=== PATIENT | male | born 1940 | race Caucasian/White ===

== ENCOUNTER 2018-04-14 14:38 | Emergency (ER) | payer MEDICARE ==
--- OUTSIDE RECORDS SUMMARY | 2018-04-14 14:46 | XMS REPORT ---
:1940 External Reference #:[id number] Author Organization Formerly [facility] Address [address] [place] [address] Phone [phone] Care Team Providers Name Role Phone Miguel Angel Sauceda M.D. Care Team Information Assistant Softball Coach Unavailable Miguel Angel Sauceda M.D. Primary Care Physician Unavailable Payers Type Date Identification Numbers Payment Provider Subscriber Medicare Primary Effective: Policy Number: Medicare - Bswny Arun Watters 2005 [id number] [facility] Haroldo ESTRELLAMichael PayID: [id number] [address] [place] [address] Part B Policy Number: [facility] Arun Haynes JR. [id number] Options [address] [place] [address] Problems Date Description Provider Status Onset: 01/21/2012 Essential hypertension Miguel Angel Sauceda M.D. Active Onset: 01/21/2012 Pure hypercholesterolemia Miguel Angel Sauceda M.D. Active Onset: 01/21/2012 Pernicious anemia GRUPO Barnard Active Family History Date Family Member(s) Problem(s) Comments Father due to CHF () (Congestive Failure) Father Stroke Father Phlebitis Father due to () Complications Of Surgery For Valvular HD Father due to DVT () - with pulm emboli, occured after choley and being bed ridden Mother due to Dementia () Mother Hypertension Mother Ministrokes And Dementia Children 1 First Son Depression Siblings 3 First Brother Arthritis First Brother Glaucoma First Sister Trigeminal Neuralgia First Sister due to COPD () First Sister Depression Second Sister Non Contributory Paternal Grandfather Unknown : (age Paternal Grandmother due to Unknown 87 Years) Causes Maternal Grandmother "Vascular Problems" Social History Type Date Description Comments Marital Status Lives With Spouse 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 Recreational Drug Use Never Used Drugs Daily Caffeine Consumes on average 5 cups of coffee per day Exercise Type/Frequency Does not exercise currently Allergies, Adverse Reactions, Alerts Date Description Reaction Status Severity Comments 07/01/2008 NKDA active Medications Medication Date Status Form Strength Qnty SIG Indications Ordering Provider Venlafaxine HCL ER 03/26 Active Caps ER 75mg 60cap 2 capsules F41.9 24HR s by mouth harman Sauceda M.DMichael Propranolol HCL 03/26 Active Tablets 10mg 30tab 1-2 by F41.9 s mouth three Sauceda, times a day M.D. as needed for anxiety Vitamin D 05/06 Active Capsules [id number] 12cap 1 by mouth E55.9 Miguel Angel (Ergocalciferol) s weekly x 12 Sauceda, saul M.DMichael Lisinopril 07/31 Active Tablets 10mg 90tab take 1 I10 s tablet by Sohail, mouth once M.D. daily Hydrochlorothiazid 12/30 Active Tablets 25mg 90tab take 1 I10 s tablet by Sauceda, mouth once M.D. daily Vitamin B12 12/26 Active Tablets 1,000mcg 90tab 1 po qd s Lesvia Sauceda Aspirin 12/22 Active Ec Tab 81mg 30uni 1 po qd I10 ts Lesvia Sauceda Venlafaxine HCL ER 03/12 Hx Caps ER 37.5mg 30cap take 1 F41.9 24HR s capsule by Sohail - mouth once M.D. 03/26 daily x weeks, then 2 po qam Hearing Evaluation 04/17 Hx Miguel Angel Hema Sauceda.Dalila 08/28 Triamcinolone 10/05 Hx Cream 0.5% 30gm apply to R23.8 affected Sauceda, - area twice M.D. 03/12 a day /2017 Atorvastatin 07/20 Hx Tablets 10mg 90tab 1 by mouth E78.0 s every day Hema Sauceda M.DMichael 02/01 Doxycycline 06/10 Hx Tablets 100mg 2tabs take 2 tab Miguel Angel Hyclate by mouth x Sohail - 1 now. M.D. 09/08 Atenolol 10/29 Hx Tablets 25mg 90tab 1 po qd s Hema SaucedaDMichael 09/19 Lisinopril 04/30 Hx Tablets 20mg 90tab 1 po qd 401.9 Shawnt s Mary Zacarias, - TREASURY MANAGER-C 07/31 Ambulatory Blood 04/30 Hx 1unit Miguel Angel Pressure Monitor s Hema SaucedaDMichael 10/28 Ergocalciferol 02/24 Hx Capsules [id number] 12cap 1 tab by 268.9 s mouth every Sohail, - week x 12 M.D. Hearing Evaluation 11/04 Hx Hema Sauceda M.D. 12/04 Azithromycin 10/05 Hx Tablets 250mg 6tabs 2 po qd day 1, then 1 Sohail, - po qd days M.D. 01/03 2- Valacyclovir HCL 07/10 Hx Tablets 1gm 21tab Take 1 053.29 s tablet tid Lambert, - for 7 days TREASURY MANAGER-C 04/26 Lisinopril 04/18 Hx Tablets 30mg 90tab take 1 401.9 s tablet once Sohail, - daily M.D. 04/30 Ergocalciferol 06/13 Hx Tablets 50,000Uni 12tab 1 po qweek ts s x 12 weeks Hema Sauceda.DMichael 02/24 Azithromycin 06/08 Hx Tablets 250mg 6tabs take 2 tabs 461.9 day 1, take Santana, - 1 day 2-5 PSYCHOLOGICAL ASSISTANT 09/27 Bleph-10 06/08 Hx Solution 10% 1bott 2 drops to 461.9 le affected Dillon, - eye every 3 PSYCHOLOGICAL ASSISTANT initially then 2 times a day for 7 days Physical Therapy 10/08 Hx ROM and 733.12 strength Sohail, - s/p distal M.DMichael 01/06 radial fx. /2009 from Late April Econazole Nitrate 10/08 Hx Cream 1% 85gm use qd to bid x 4 Sohail - weeks for M.D. 09/27 athlete's foot Physical Therapy 06/09 Hx evaluate and treat Sohail - lower back M.D. 09/07 pain Qualaquin 04/01 Hx Capsules 324mg 56cap 2 po q8hr x 729.82 s 7 days Hema Sauceda M.D. 02/04 Astelin 12/30 Hx Solution 137mcg/Sp 30ml Inhale 2 472.0 ray Sprays In Sohail, - Each M.DMichael 04/26 Nostril Times A Day Zestril 09/04 Hx Tablets 30mg 90tab 1 po qd 401.9 Hema Nuñez M.D. 04/18 Hydrochlorothiazid 06/26 Hx Capsules 12.5mg 90cap 1 po qd Hema Nuñez M.D. 12/30 Spectazole 10/27 Hx Cream 1% 60gm use bid Hema Solano M.D. 12/22 Effexor XR 12/08 Hx Capsules 150mg 30cap one qd Hema Jewell M.D. 10/27 Celexa 07/18 Hx Tablets 20mg 30tab use 07/31 to s 1 tab a day Hema Solano M.D. 10/27 Wellbutrin SR 06/02 Hx Tablets 150mg 30tab One qd Nancy Hema Jewell M.D. 10/06 Vitamin B12 04/29 Hx Liquid 1000mcg/M 30ml use as 266.9 Nancy L Hema Woods M.D. 01/29 Syringes 3cc 25G 04/29 Hx 12uni use monthly Nancy 1In [place] Hema Miramontes M.D. 02/03 Effexor XR 04/29 Hx Capsules 75mg 30cap one qd Nancy s Hema Solano MOllie 10/27 Physical Therapy 03/05 Hx 6unit PT for low s back pain Hema Solano with M.DMichael 12/22 radiculopa hy Zestril 01/09 Hx Tablets 20mg 90tab one qd 401.9 Hema Nuñez M.D. 09/04 Metoprolol Hx Tablets 25mg Unknown Succinate ER /0000 ER 24HR - 10/28 Immunizations CPT Code Status Date Vaccine Lot # [id number] Given 05/21/2017 Influenza Vaccine High Dose PF [id number] 65663 Given 05/10/2016 Influenza Vaccine High Dose PF [id number] 65060 Given 05/06/2015 Prevnar-13 Pneumococcal Conjugate Vaccine [id number] 22696 Given 04/27/2015 Influenza Vaccine High Dose PF [id number] 91868 Given 04/30/2014 Influenza Vaccine High Dose PF [id number] 63923 Given 08/14/2013 [place] [address] Given 02/05/2013 Zoster Vaccine [id number] 31708 Given 02/05/2013 Tdap (Adacel) [id number] 05622 Given 04/30/2012 Influenza Vaccine High Dose PF [id number] 98733 Given 04/13/2010 Influenza Vaccine-Preservative Free 3 Yrs And [id number] Above 97613 Given 04/01/2009 Influenza Vaccine-Preservative Free 3 Yrs And [id number] Above 18946 Given 07/01/2008 Pneumovax 23 (PPSV23) 65+ years or high risk 2 to [id number] 64 year old 92389 Given 07/01/2008 Influenza Virus Vaccine, 3 Yrs And Above [id number] 86532 Given 12/22/2005 DT (Adult) [id number] 59291 Given 08/24/2004 Influenza Virus Vaccine, 3 Yrs And Above 40323 Given 07/01/2003 Influenza Virus Vaccine, 3 Yrs And Above 84505 Given 06/02/2002 Influenza Virus Vaccine, 3 Yrs And Above Vital Signs Date Vital Result Comment 03/26/2018 Weight 256.00 lb Weight in kg's 116.122 BP Systolic 120 mmHg BP Diastolic 68 mmHg Heart Rate 88 /min Body Temperature 97.6 F Respiratory Rate 18 /min O2 % BldC Oximetry 94 % Ra 03/12/2018 Weight 260.00 lb Weight in kg's 117.936 BP Systolic 110 mmHg BP Diastolic 60 mmHg Heart Rate 88 /min Body Temperature 99.3 F Respiratory Rate 20 /min 08/29/2017 Weight 261.00 lb Weight in kg's 118.390 BP Systolic 118 mmHg BP Diastolic 70 mmHg Heart Rate 84 /min Body Temperature 97.0 F Respiratory Rate 24 /min 05/21/2017 Weight 254.00 lb Weight in kg's 115.214 BP Systolic 110 mmHg BP Diastolic 78 mmHg Heart Rate 64 /min Body Temperature 98.3 F 11/08/2016 Weight 248.00 lb Weight in kg's 112.493 BP Systolic 110 mmHg BP Diastolic 60 mmHg Heart Rate 68 /min Body Temperature 96.7 F 10/05/2016 Weight 253.00 lb Weight in kg's 114.761 BP Systolic 138 mmHg BP Diastolic 88 mmHg Heart Rate 68 /min Body Temperature 97.8 F Respiratory Rate 18 /min O2 % BldC Oximetry 98 % 08/29/2016 Weight 242.00 lb Weight in kg's 109.771 BP Systolic 120 mmHg BP Diastolic 78 mmHg Heart Rate 60 /min Body Temperature 97.6 F Respiratory Rate 12 /min 05/10/2016 Weight 246.00 lb Weight in kg's 111.586 BP Systolic 118 mmHg BP Diastolic 60 mmHg Heart Rate 60 /min Height 67 inches 5'7" BMI (Body Mass Index) 38.5 kg/m2 O2 % BldC Oximetry 98 % 04/01/2016 Weight 248.00 lb Weight in kg's 112.493 BP Systolic 120 mmHg BP Diastolic 78 mmHg Heart Rate 56 /min Body Temperature 97.3 F Respiratory Rate 16 /min 02/17/2016 Weight 242.00 lb Weight in kg's 109.771 BP Systolic 108 mmHg BP Diastolic 68 mmHg Heart Rate 72 /min Body Temperature 98.3 F Respiratory Rate 20 /min 02/02/2016 Weight 245.00 lb Weight in kg's 111.132 BP Systolic 112 mmHg BP Diastolic 74 mmHg Heart Rate 74 /min Body Temperature 97.6 F 01/29/2016 Weight 241.00 lb Weight in kg's 109.318 BP Systolic 106 mmHg BP Diastolic 60 mmHg Heart Rate 64 /min Body Temperature 99.0 F O2 % BldC Oximetry 96 % 10/13/2015 Weight 239.00 lb Weight in kg's 108.410 BP Systolic 108 mmHg BP Diastolic 62 mmHg Heart Rate 58 /min 09/29/2015 Weight 237.00 lb Weight in kg's 107.503 BP Systolic 120 mmHg BP Diastolic 67 mmHg Heart Rate 56 /min O2 % BldC Oximetry 95 % 08/10/2015 Weight 242.00 lb Weight in kg's 109.771 BP Systolic 120 mmHg BP Diastolic 68 mmHg Heart Rate 66 /min 07/20/2015 Weight 240.00 lb Weight in kg's 108.864 BP Systolic 100 mmHg BP Diastolic 68 mmHg Heart Rate 58 /min Body Temperature 98.8 F Motrin AT 3:12 O2 % BldC Oximetry 96 % 07/01/2015 Weight 238.00 lb Weight in kg's 107.957 BP Systolic 130 mmHg BP Diastolic 76 mmHg Heart Rate 64 /min 05/06/2015 Weight 235.00 lb Weight in kg's 106.596 BP Systolic 118 mmHg BP Diastolic 72 mmHg Heart Rate 60 /min Height 67 inches 5'7" BMI (Body Mass Index) 36.8 kg/m2 04/27/2015 Weight 238.00 lb Weight in kg's 107.957 BP Systolic 104 mmHg BP Diastolic 88 mmHg Heart Rate 68 /min 04/30/2014 Weight 232.00 lb Weight in kg's 105.235 BP Systolic 112 mmHg BP Diastolic 70 mmHg Heart Rate 68 /min Height 67.5 inches 5'7.50" BMI (Body Mass Index) 35.8 kg/m2 10/29/2013 Weight 232.00 lb Weight in kg's 105.235 BP Systolic 108 mmHg BP Diastolic 66 mmHg Heart Rate 72 /min 07/31/2013 Weight 232.00 lb Weight in kg's 105.235 BP Systolic 135 mmHg 150/ 90 initally BP Diastolic 70 mmHg 150/ 90 initally Heart Rate 80 /min 04/30/2013 Weight 233.00 lb Weight in kg's 105.689 BP Systolic 132 mmHg BP Diastolic 82 mmHg Heart Rate 88 /min Body Temperature 98.2 F 02/05/2013 Weight 233.00 lb Weight in kg's 105.689 BP Systolic 140 mmHg BP Diastolic 84 mmHg Heart Rate 72 /min Height 68 inches 5'8" BMI (Body Mass Index) 35.4 kg/m2 04/30/2012 Weight 254.00 lb Weight in kg's 115.214 BP Systolic 110 mmHg BP Diastolic 62 mmHg Heart Rate 96 /min 01/18/2012 Weight 250.00 lb Weight in kg's 113.400 BP Systolic 140 mmHg BP Diastolic 90 mmHg Heart Rate 80 /min Body Temperature 98.3 F 10/06/2011 Weight 250.00 lb Weight in kg's 113.400 BP Systolic 102 mmHg BP Diastolic 60 mmHg Heart Rate 72 /min Body Temperature 97.4 F 07/10/2011 Weight 254.00 lb Weight in kg's 115.214 BP Systolic 112 mmHg BP Diastolic 70 mmHg Heart Rate 68 /min 06/08/2010 Weight 240.00 lb Weight in kg's 108.864 BP Systolic 132 mmHg BP Diastolic 78 mmHg Heart Rate 88 /min Body Temperature 97.7 F O2 % BldC Oximetry 97 % 04/13/2010 Weight 237.00 lb Weight in kg's 107.503 BP Systolic 126 mmHg BP Diastolic 80 mmHg Heart Rate 104 /min Height 67.5 inches 5'7.50" BMI (Body Mass Index) 36.6 kg/m2 10/08/2009 Weight 254.00 lb Weight in kg's 115.214 BP Systolic 118 mmHg BP Diastolic 70 mmHg Heart Rate 76 /min 06/09/2009 BP Systolic 100 mmHg BP Diastolic 68 mmHg Heart Rate 72 /min 04/01/2009 Weight 252.00 lb Weight in kg's 114.307 BP Systolic 96 mmHg BP Diastolic 64 mmHg Heart Rate 76 /min 02/16/2009 Weight 254.00 lb Weight in kg's 115.214 BP Systolic 112 mmHg BP Diastolic 78 mmHg Heart Rate 87 /min Body Temperature 98.4 F Height 67.50 inches 5'7.50" BMI (Body Mass Index) 39.2 kg/m2 12/30/2008 Weight 252.00 lb Weight in kg's 114.307 BP Systolic 154 mmHg repeat 148/90 BP Diastolic 94 mmHg repeat 148/90 Heart Rate 92 /min 07/01/2008 Weight 244.00 lb Weight in kg's 110.678 BP Systolic 150 mmHg BP Diastolic 90 mmHg Heart Rate 72 /min Height 67.75 inches 5'7.75" BMI (Body Mass Index) 37.4 kg/m2 12/31/2007 Weight 239.00 lb Weight in kg's 108.410 BP Systolic 124 mmHg BP Diastolic 82 mmHg Heart Rate 78 /min Height 67.5 inches 5'7.50" BMI (Body Mass Index) 36.9 kg/m2 09/04/2006 Weight 253.00 lb Weight in kg's 114.761 BP Systolic 144 mmHg BP Diastolic 86 mmHg Heart Rate 68 /min Height 67.5 inches 5'7.50" BMI (Body Mass Index) 39.0 kg/m2 06/26/2006 Weight 253.00 lb Weight in kg's 114.761 BP Systolic 150 mmHg BP Diastolic 86 mmHg Heart Rate 72 /min Height 67.5 inches 5'7.50" BMI (Body Mass Index) 39.0 kg/m2 12/22/2005 Weight 245.00 lb Weight in kg's 111.132 BP Systolic 140 mmHg BP Diastolic 92 mmHg Heart Rate 80 /min Body Temperature 95.8 F Height 67.5 inches 5'7.50" BMI (Body Mass Index) 37.8 kg/m2 12/06/2005 Weight 244.00 lb Weight in kg's 110.678 BP Systolic 122 mmHg BP Diastolic 80 mmHg Heart Rate 80 /min 08/24/2004 Weight 236.00 lb Weight in kg's 107.050 BP Systolic 110 mmHg BP Diastolic 80 mmHg Heart Rate 68 /min 10/28/2003 Weight 209.00 lb Weight in kg's 94.802 BP Systolic 150 mmHg BP Diastolic 80 mmHg Heart Rate 86 /min Respiratory Rate 18 /min Height 67.5 inches BMI (Body Mass Index) 32.2 kg/m2 07/29/2003 Weight 200.00 lb Weight in kg's 90.720 BP Systolic 130 mmHg BP Diastolic 70 mmHg 07/01/2003 Weight 194.00 lb Weight in kg's 87.998 BP Systolic 130 mmHg BP Diastolic 880 mmHg 03/13/2003 Weight 194.00 lb Weight in kg's 87.998 BP Systolic 130 mmHg BP Diastolic 80 mmHg 10/06/2002 Weight 240.00 lb Weight in kg's 108.864 BP Systolic 130 mmHg BP Diastolic 90 mmHg Heart Rate 84 /min Respiratory Rate 18 /min 08/04/2002 Weight 242.00 lb Weight in kg's 109.8 BP Systolic 110 mmHg BP Diastolic 70 mmHg 07/02/2002 Weight 240.00 lb Weight in kg's 108.9 BP Systolic 128 mmHg BP Diastolic 80 mmHg 06/02/2002 Weight 240.00 lb Weight in kg's 108.9 BP Systolic 130 mmHg BP Diastolic 80 mmHg Heart Rate 78 /min Respiratory Rate 18 /min 04/29/2002 Weight 248.00 lb Weight in kg's 112.5 BP Systolic 150 mmHg BP Diastolic 100 mmHg Heart Rate 64 /min Respiratory Rate 18 /min Height 68 inches BMI (Body Mass Index) 37.7 kg/m2 01/22/2002 Weight 241.00 lb BP Systolic 130 mmHg BP Diastolic 80 mmHg Heart Rate 78 /min Respiratory Rate 18 /min Results Test Date Test Result H/L Range Note Laboratory test finding 04/10/2017 C Reactive Protein 8.31 mg/L High < 5.00 1 TSH (Thyroid Stimulating Horm) 2.21 mcIU/mL 0.34-5.60 Free T4 1.05 ng/dL 0.61-1.12 Folate 12.25 ng/mL >3.99 Vitamin B12 989 pg/mL High 180-914 2 Vitamin D Total 25(Oh) 30.4 ng/mL 30-50 Urinalysis Profile 04/10/2017 Urine Color Yellow Urine Appearance Clear Urine Specific [place] 1.014 1.010-1.030 Urine pH 6.0 5-9 Urine Urobilinogen Negative Negative Urine Ketones Negative Negative Urine Protein Negative Negative Urine Leukocytes Negative Negative Urine Blood Negative Negative Urine Nitrite Negative Negative Urine Bilirubin Negative Negative Urine Glucose Negative Negative Basic Metabolic Panel 04/10/2017 Sodium 135 mmol/L 133-145 Potassium 3.9 mmol/L 3.5-5.0 Chloride 102 mmol/L 101-111 Co2 Carbon Dioxide 27 mmol/L 22-32 Anion Gap 6 mmol/L 2-11 Glucose 103 mg/dL High 70-100 Blood Urea Nitrogen 17 mg/dL 6-24 Creatinine 1.10 mg/dL 0.67-1.17 BUN/Creatinine Ratio 15.5 8-20 Calcium 9.7 mg/dL 8.6-10.3 Egfr Non- 65.1 >60 Egfr 83.7 >60 3 CBC No Diff 04/10/2017 White Blood Count 6.8 10^3/uL 3.5-10.8 Red Blood Count 4.77 10^6/uL 4.0-5.4 Hemoglobin 15.5 g/dL 14.0-18.0 Hematocrit 46 % 42-52 Mean Corpuscular Volume 96 fL High 80-94 Mean Corpuscular Hemoglobin 33 pg High 27-31 Mean Corpuscular HGB Conc 34 g/dL 31-36 Red Cell Distribution Width 14 % 10.5-15 Platelet Count 191 10^3/uL 150-450 Mean Platelet Volume 9 um3 7.4-10.4 Laboratory test 01/31/2017 Surgical Pathology SEE RESULT BELOW 4 finding Laboratory test 10/05/2016 Surgical Pathology SEE RESULT BELOW 5, 6 finding Laboratory test 05/10/2016 PSA Screening 0.971 ng/mL 0-4.000 7, 8 finding Urine DIP 05/10/2016 Leukocytes NEG Neg Urine Nitrites NEG Neg Urobilinogen NORM Norm Total Protein, Urine NEG Neg Urine pH 5 5-6 Urine Blood NEG Neg Specific [place] 1.015 1.01-1.02 Urine Ketones NEG Neg Urine Bilirubin NEG Neg Urine Glucose NORM Norm Laboratory test finding 05/10/2016 Vitamin D Total 24.7 ng/mL Low 30-50 7 , 9 25(Oh) CBC Auto Diff 05/10/2016 White Blood Count 6.4 10^3/uL 3.5-10.8 7 Red Blood Count 4.30 10^6/uL 4.0-5.4 7 Hemoglobin 14.1 g/dL 14.0-18.0 7 Hematocrit 41 % Low 42-52 7 Mean Corpuscular Volume 96 fL High 80-94 7 Mean Corpuscular Hemoglobin 33 pg High 27-31 7 Mean Corpuscular HGB Conc 34 g/dL 31-36 7 Red Cell Distribution Width 14 % 10.5-15 7 Platelet Count 180 10^3/uL 150-450 7 Mean Platelet Volume 10 um3 7.4-10.4 7 Abs Neutrophils 4.6 10^3/uL 1.5-7.7 7 Abs Lymphocytes 1.2 10^3/uL 1.0-4.8 7 Abs Monocytes 0.5 10^3/uL 0-0.8 7 Abs Eosinophils 0 10^3/uL 0-0.6 7 Abs Basophils 0.1 10^3/uL 0-0.2 7 Abs Nucleated RBC 0 10^3/uL 7 Granulocyte % 71.7 % 38-83 7 Lymphocyte % 19.1 % Low 25-47 7 Monocyte % 8.2 % 1-9 7 Eosinophil % 0.2 % 0-6 7 Basophil % 0.8 % 0-2 7 Nucleated Red Blood Cells % 0.1 7 Comp Metabolic Panel 05/10/2016 Sodium 136 mmol/L 133-145 7 Potassium 4.1 mmol/L 3.5-5.0 7 Chloride 104 mmol/L 101-111 7 Co2 Carbon Dioxide 26 mmol/L 22-32 7 Anion Gap 6 mmol/L 2-11 7 Glucose 106 mg/dL High 70-100 7 Blood Urea Nitrogen 22 mg/dL 6-24 7 Creatinine 1.17 mg/dL 0.67-1.17 7 BUN/Creatinine Ratio 18.8 8-20 7 Calcium 9.5 mg/dL 8.6-10.3 7 Total Protein 7.0 g/dL 6.4-8.9 7 Albumin 4.1 g/dL 3.2-5.2 7 Globulin 2.9 g/dL 2-4 7 Albumin/Globulin Ratio 1.4 1-3 7 Total Bilirubin 0.70 mg/dL 0.2-1.0 7 Alkaline Phosphatase 55 U/L 34-104 7 Alt 16 U/L 7-52 7 Ast 19 U/L 13-39 7 Egfr Non- 60.8 >60 7 Egfr 78.2 >60 7, 10 Lyme Western Blot 03/02/2016 Lyme Disease IgG Ab WB Negative Negative 11 Lyme Disease IgG Bands Present p66, p41, kDa 11 Lyme Disease IgM Ab WB Negative Negative 11 Lyme Disease IgM Bands Present No bands detecte <SEE NOTE> kDa 11, 12 Lyme Disease Interpretation See Comment 11, 13 Urine DIP 02/02/2016 Leukocytes neg Neg Urine Nitrites neg Neg Urobilinogen norm Norm Total Protein, Urine neg Neg Urine pH 5 5-6 Urine Blood neg Neg Specific [place] 1.020 1.01-1.02 Urine Ketones neg Neg Urine Bilirubin neg Neg Urine Glucose norm Norm Laboratory test finding 01/30/2016 Troponin I 0.01 ng/mL <0.03 14 C Reactive Protein 176.49 mg/L High < 5.00 15 Erythrocyte Sed Rate 55 mm/Hr High 0-40 Blood Culture SEE RESULT BELOW 16 Comp Metabolic Panel 01/30/2016 Sodium 137 mmol/L 133-145 Potassium 3.7 mmol/L 3.5-5.0 Chloride 104 mmol/L 101-111 Co2 Carbon Dioxide 26 mmol/L 22-32 Anion Gap 7 mmol/L 2-11 Glucose 107 mg/dL High 70-100 Blood Urea Nitrogen 23 mg/dL 6-24 Creatinine 1.28 mg/dL High 0.67-1.17 BUN/Creatinine Ratio 18.0 8-20 Calcium 9.3 mg/dL 8.6-10.3 Total Protein 7.4 g/dL 6.4-8.9 Albumin 3.8 g/dL 3.2-5.2 Globulin 3.6 g/dL 2-4 Albumin/Globulin Ratio 1.1 1-3 Total Bilirubin 0.70 mg/dL 0.2-1.0 Alkaline Phosphatase 58 U/L 34-104 Alt 14 U/L 7-52 Ast 17 U/L 13-39 Egfr Non- 54.8 >60 Egfr 70.5 >60 17 Laboratory test finding 01/30/2016 Partial Thrombo Time 29.7 seconds 26.0 -36.3 PTT Inr/Protime 01/30/2016 Inr 1.13 High 0.89-1.11 CBC Auto Diff 01/30/2016 White Blood Count 8.1 10^3/uL 3.5-10.8 Red Blood Count 4.52 10^6/uL 4.0-5.4 Hemoglobin 14.3 g/dL 14.0-18.0 Hematocrit 43 % 42-52 Mean Corpuscular Volume 95 fL High 80-94 Mean Corpuscular Hemoglobin 32 pg High 27-31 Mean Corpuscular HGB Conc 33 g/dL 31-36 Red Cell Distribution Width 15 % 10.5-15 Platelet Count 159 10^3/uL 150-450 Mean Platelet Volume 9 um3 7.4-10.4 Abs Neutrophils 6.3 10^3/uL 1.5-7.7 Abs Lymphocytes 0.8 10^3/uL Low 1.0-4.8 Abs Monocytes 0.8 10^3/uL 0-0.8 Abs Eosinophils 0.2 10^3/uL 0-0.6 Abs Basophils 0 10^3/uL 0-0.2 Abs Nucleated RBC 0.03 10^3/uL Granulocyte % 78.0 % 38-83 Lymphocyte % 9.5 % Low 25-47 Monocyte % 10.2 % High 1-9 Eosinophil % 1.9 % 0-6 Basophil % 0.4 % 0-2 Nucleated Red Blood Cells % 0.3 Urinalysis Profile 01/29/2016 Urine Color Yellow Urine Appearance Clear Urine Specific [place] 1.025 1.010-1.030 Urine pH 5.0 5-9 Urine Urobilinogen Negative Negative Urine Ketones Negative Negative Urine Protein 1+(30 mg/dL) Negative Urine Leukocytes Negative Negative Urine Blood Negative Negative Urine Nitrite Negative Negative Urine Bilirubin Negative Negative Urine Glucose Negative Negative Urine White Blood Cell Trace(0-5/hpf) Absent Urine Red Blood Cell Absent Absent Urine Bacteria Absent Absent Urine Squamous Epithelial Cell Present Absent Urine Hyaline Casts Present Absent Laboratory test 01/29/2016 Urine Culture SEE RESULT BELOW 18 finding Ehrlichia Igg/Igm Ifa 01/29/2016 Anaplasma phagocytophila <1:64 titer <1: 64 19 IgG Ehrlichia chaffeensis IgG AB <1:64 titer <1:64 20 West Nile Igg And Igm 01/29/2016 West Nile Virus IgG Negative Negative West Nile Virus IgM Negative Negative West Nile Serum Interpretation See Comment 21 Laboratory test finding 01/29/2016 Erythrocyte Sed Rate 36 mm/Hr 0-40 C Reactive Protein 136.53 mg/L High < 5.00 22 Lyme Western Blot 01/29/2016 Lyme Disease IgG Ab WB Negative Negative Lyme Disease IgG Bands Present p41, kDa Lyme Disease IgM Ab WB Negative Negative Lyme Disease IgM Bands Present No bands detecte <SEE NOTE> kDa 23 Lyme Disease Interpretation See Comment 24 Comp Metabolic Panel 01/29/2016 Sodium 135 mmol/L 133-145 Potassium 3.3 mmol/L Low 3.5-5.0 Chloride 103 mmol/L 101-111 Co2 Carbon Dioxide 24 mmol/L 22-32 Anion Gap 8 mmol/L 2-11 Glucose 149 mg/dL High 70-100 Blood Urea Nitrogen 23 mg/dL 6-24 Creatinine 1.18 mg/dL High 0.67-1.17 BUN/Creatinine Ratio 19.5 8-20 Calcium 8.9 mg/dL 8.6-10.3 Total Protein 6.7 g/dL 6.4-8.9 Albumin 3.7 g/dL 3.2-5.2 Globulin 3.0 g/dL 2-4 Albumin/Globulin Ratio 1.2 1-3 Total Bilirubin 0.70 mg/dL 0.2-1.0 Alkaline Phosphatase 46 U/L 34-104 Alt 10 U/L 7-52 Ast 13 U/L 13-39 Egfr Non- 60.2 >60 Egfr 77.4 >60 25 CBC Auto Diff 01/29/2016 White Blood Count 8.6 10^3/uL 3.5-10.8 Red Blood Count 4.51 10^6/uL 4.0-5.4 Hemoglobin 14.3 g/dL 14.0-18.0 Hematocrit 42 % 42-52 Mean Corpuscular Volume 94 fL 80-94 Mean Corpuscular Hemoglobin 32 pg High 27-31 Mean Corpuscular HGB Conc 34 g/dL 31-36 Red Cell Distribution Width 14 % 10.5-15 Platelet Count 142 10^3/uL Low 150-450 Mean Platelet Volume 9 um3 7.4-10.4 Abs Neutrophils 7.2 10^3/uL 1.5-7.7 Abs Lymphocytes 0.6 10^3/uL Low 1.0-4.8 Abs Monocytes 0.7 10^3/uL 0-0.8 Abs Eosinophils 0.1 10^3/uL 0-0.6 Abs Basophils 0 10^3/uL 0-0.2 Abs Nucleated RBC 0 10^3/uL Granulocyte % 83.8 % High 38-83 Lymphocyte % 7.2 % Low 25-47 Monocyte % 7.6 % 1-9 Eosinophil % 1.2 % 0-6 Basophil % 0.2 % 0-2 Nucleated Red Blood Cells % 0 CBC Auto Diff 07/17/2015 White Blood Count 6.6 10^3/uL 3.5-10.8 Red Blood Count 4.68 10^6/uL 4.0-5.4 Hemoglobin 15.1 g/dL 14.0-18.0 Hematocrit 46 % 42-52 Mean Corpuscular Volume 98 fL High 80-94 Mean Corpuscular Hemoglobin 32 pg High 27-31 Mean Corpuscular HGB Conc 33 g/dL 31-36 Red Cell Distribution Width 14 % 10.5-15 Platelet Count 186 10^3/uL 150-450 Mean Platelet Volume 9 um3 7.4-10.4 Abs Neutrophils 4.1 10^3/uL 1.5-7.7 Abs Lymphocytes 1.6 10^3/uL 1.0-4.8 Abs Monocytes 0.7 10^3/uL 0-0.8 Abs Eosinophils 0.2 10^3/uL 0-0.6 Abs Basophils 0.1 10^3/uL 0-0.2 Abs Nucleated RBC 0.01 10^3/uL Granulocyte % 61.7 % 38-83 Lymphocyte % 24.8 % Low 25-47 Monocyte % 10.2 % High 1-9 Eosinophil % 2.5 % 0-6 Basophil % 0.8 % 0-2 Nucleated Red Blood Cells % 0.1 Inr/Protime 07/17/2015 Inr 0.98 0.89-1.11 Laboratory test finding 07/17/2015 Partial Thrombo Time 33.4 seconds 26.0 -36.3 PTT Comp Metabolic Panel 07/17/2015 Sodium 136 mmol/L 133-145 Potassium 4.1 mmol/L 3.5-5.0 Chloride 101 mmol/L 101-111 Co2 Carbon Dioxide 29 mmol/L 22-32 Anion Gap 6 mmol/L 2-11 Glucose 103 mg/dL High 70-100 Blood Urea Nitrogen 19 mg/dL 6-24 Creatinine 1.06 mg/dL 0.67-1.17 BUN/Creatinine Ratio 17.9 8-20 Calcium 9.5 mg/dL 8.6-10.3 Total Protein 7.4 g/dL 6.4-8.9 Albumin 4.2 g/dL 3.2-5.2 Globulin 3.2 g/dL 2-4 Albumin/Globulin Ratio 1.3 1-3 Total Bilirubin 0.50 mg/dL 0.2-1.0 Alkaline Phosphatase 50 U/L 34-104 Alt 9 U/L 7-52 Ast 15 U/L 13-39 Egfr Non- 68.1 >60 Egfr 87.6 >60 26 Laboratory test finding 07/17/2015 Troponin I 0.00 ng/mL <0.03 27 Laboratory test finding 06/01/2015 TSH (Thyroid Stimulating 1.74 ?IU/mL 0.34-5.60 Horm) Lyme Disease Serology Negative Negative 28 Urine DIP 05/06/2015 Specific [place] 1.015 1.01-1.02 Urine pH 5 5-6 Leukocytes neg Neg Urine Nitrites neg Neg Total Protein, Urine neg Neg Urine Glucose norm Norm Urine Ketones neg Neg Urobilinogen norm Norm Urine Bilirubin neg Neg Urine Blood neg Neg Comp Metabolic Panel 04/27/2015 Sodium 135 mmol/L 133-145 Potassium 4.3 mmol/L 3.5-5.0 Chloride 100 mmol/L Low 101-111 Co2 Carbon Dioxide 30 mmol/L 22-32 Anion Gap 5 mmol/L 2-11 Glucose 102 mg/dL High 70-100 Blood Urea Nitrogen 15 mg/dL 6-24 Creatinine 1.09 mg/dL 0.67-1.17 BUN/Creatinine Ratio 13.8 8-20 Calcium 9.6 mg/dL 8.6-10.3 Total Protein 6.9 g/dL 6.4-8.9 Albumin 4.4 g/dL 3.2-5.2 Globulin 2.5 g/dL 2-4 Albumin/Globulin Ratio 1.8 1-3 Total Bilirubin 0.60 mg/dL 0.2-1.0 Alkaline Phosphatase 51 U/L 34-104 Alt 12 U/L 7-52 Ast 17 U/L 13-39 Egfr Non- 66.1 >60 Egfr 85.0 >60 29 Laboratory test finding 04/27/2015 Vitamin D Total 25(Oh) 18.0 ng/mL Low 30-50 Vitamin B12 582 pg/mL 180-914 30 Lipid Profile (Trig/Chol/HDL) 04/27/2015 Triglycerides 67 mg/dL 31 Cholesterol 204 mg/dL 32 HDL Cholesterol 44.8 mg/dL 33 LDL Cholesterol 146 mg/dL 34 CBC Auto Diff 04/27/2015 White Blood Count 6.3 10^3/uL 4.8-10.8 Red Blood Count 4.88 10^6/uL 4.0-5.4 Hemoglobin 15.9 g/dL 14.0-18.0 Hematocrit 48 % 42-52 Mean Corpuscular Volume 98 fL High 80-94 Mean Corpuscular Hemoglobin 33 pg High 27-31 Mean Corpuscular HGB Conc 33 g/dL 31-36 Red Cell Distribution Width 14 % 10.5-15 Platelet Count 203 10^3/uL 150-450 Mean Platelet Volume 9 um3 7.4-10.4 Abs Neutrophils 4.4 10^3/uL 1.5-7.7 Abs Lymphocytes 1.2 10^3/uL 1.0-4.8 Abs Monocytes 0.5 10^3/uL 0-0.8 Abs Eosinophils 0.1 10^3/uL 0-0.6 Abs Basophils 0.1 10^3/uL 0-0.2 Abs Nucleated RBC 0.01 10^3/uL Granulocyte % 69.4 % 38-83 Lymphocyte % 19.7 % Low 25-47 Monocyte % 8.5 % 1-9 Eosinophil % 1.3 % 0-6 Basophil % 1.1 % 0-2 Nucleated Red Blood Cells % 0.1 Laboratory test finding 04/27/2015 Lyme Disease Serology Negative Negative 35 Arthritis Panel 04/27/2015 Uric Acid 7.3 mg/dL 4.4-7.6 Erythrocyte Sed Rate 13 mm/Hr 0-40 Rheumatoid Factor 17 IU/mL <15 36 Lisa (Anti-Nuclear AB) Screen Reflexed to FA Negative Laboratory test finding 04/27/2015 PSA Screening 1.268 ng/mL 0-4.000 37 Lisa Hep-2 04/27/2015 Lisa Pattern Homogeneous Negative Lisa Titer 1:320 <1:80 Lisa Reviewed By MD Jeannie Ravi 38 CBC Auto Diff 06/11/2014 White Blood Count 6.3 10^3/uL 4.8-10.8 Red Blood Count 4.66 10^6/uL 4.0-5.4 Hemoglobin 15.3 g/dL 14.0-18.0 Hematocrit 46 % 42-52 Mean Corpuscular Volume 98 fL High 80-94 Mean Corpuscular Hemoglobin 33 pg High 27-31 Mean Corpuscular HGB Conc 34 g/dL 31-36 Red Cell Distribution Width 14 % 10.5-15 Platelet Count 183 10^3/uL 150-450 Mean Platelet Volume 9 um3 7.4-10.4 Abs Neutrophils 4.0 10^3/uL 1.5-7.7 Abs Lymphocytes 1.4 10^3/uL 1.0-4.8 Abs Monocytes 0.7 10^3/uL 0-0.8 Abs Eosinophils 0.2 10^3/uL 0-0.6 Abs Basophils 0 10^3/uL 0-0.2 Abs Nucleated RBC 0 10^3/uL Granulocyte % 63.6 % 38-83 Lymphocyte % 22.7 % Low 25-47 Monocyte % 10.5 % High 1-9 Eosinophil % 2.5 % 0-6 Basophil % 0.7 % 0-2 Nucleated Red Blood Cells % 0.1 Inr/Protime 06/11/2014 Inr 0.99 0.85-1.06 Laboratory test finding 06/11/2014 Activated Partial 33.1 seconds 24.0- 36.1 Thrombo Time Comp Metabolic Panel 06/11/2014 Sodium 137 mmol/L 133-145 Potassium 3.7 mmol/L 3.5-5.0 39 Chloride 102 mmol/L 101-111 Co2 Carbon Dioxide 31 mmol/L 22-32 Anion Gap 4 mmol/L 2-11 Glucose 99 mg/dL 70-100 Blood Urea Nitrogen 19 mg/dL 6-24 Creatinine 1.04 mg/dL 0.67-1.17 BUN/Creatinine Ratio 18.3 8-20 Calcium 9.3 mg/dL 8.6-10.3 Total Protein 6.9 g/dL 6.4-8.9 Albumin 4.2 g/dL 3.2-5.2 Globulin 2.7 g/dL 2-4 Albumin/Globulin Ratio 1.6 1-3 Total Bilirubin 0.60 mg/dL 0.2-1.0 Alkaline Phosphatase 44 U/L 34-104 Alt 11 U/L 7-52 Ast 14 U/L 13-39 Egfr Non- 69.8 >60 Egfr 89.8 >60 40 CBC No Diff 04/23/2014 White Blood Count 6.9 10^3/uL 4.8-10.8 Red Blood Count 4.58 10^6/uL 4.0-5.4 Hemoglobin 15.2 g/dL 14.0-18.0 Hematocrit 45 % 42-52 Mean Corpuscular Volume 98 fL High 80-94 Mean Corpuscular Hemoglobin 33 pg High 27-31 Mean Corpuscular HGB Conc 34 g/dL 31-36 Red Cell Distribution Width 14 % 10.5-15 Platelet Count 180 10^3/uL 150-450 Mean Platelet Volume 9 um3 7.4-10.4 Comp Metabolic Panel 04/23/2014 Sodium 137 mmol/L 133-145 Potassium 3.8 mmol/L 3.7-5.6 Chloride 103 mmol/L 101-111 Co2 Carbon Dioxide 30 mmol/L 22-32 Anion Gap 4 mmol/L 2-11 Glucose 91 mg/dL 70-100 Blood Urea Nitrogen 15 mg/dL 6-24 Creatinine 1.07 mg/dL 0.67-1.17 BUN/Creatinine Ratio 14.0 8-20 Calcium 9.4 mg/dL 8.6-10.3 Total Protein 6.6 g/dL 6.4-8.9 Albumin 4.1 g/dL 3.2-5.2 Globulin 2.5 g/dL 2-4 Albumin/Globulin Ratio 1.6 1-3 Total Bilirubin 0.70 mg/dL 0.2-1.0 Alkaline Phosphatase 40 U/L 34-104 Alt 10 U/L 7-52 Ast 12 U/L Low 13-39 Egfr Non- 67.7 >60 Egfr 87.1 >60 41 Laboratory test finding 04/23/2014 PSA Screening 1.048 ng/mL 0-4.000 42 Vitamin D, 25 Hydroxy 04/23/2014 25-Hydroxy Vitamin D2 12 ng/mL 25-Hydroxy Vitamin D3 9.6 ng/mL 25-Hydroxy Vitamin D Total 22 ng/mL 43 Laboratory test finding 02/05/2013 Vitamin B12 394 pg/mL 180-914 CBC No Diff 02/05/2013 White Blood Count 5.7 10^3/uL 4.8-10.8 Red Blood Count 4.66 10^6/uL 4.0-5.4 Hemoglobin 15.4 g/dL 14.0-18.0 Hematocrit 46 % 42-52 Mean Corpuscular Volume 99 fL High 80-94 Mean Corpuscular Hemoglobin 33 pg High 27-31 Mean Corpuscular HGB Conc 33 g/dL 31-36 Red Cell Distribution Width 14 % 10.5-15 Platelet Count 175 10^3/uL 150-450 Mean Platelet Volume 10 um3 7.4-10.4 Comp Metabolic Panel 02/05/2013 Sodium 138 mmol/L 133-145 Potassium 3.8 mmol/L 3.5-5.0 Chloride 103 mmol/L 101-111 Co2 Carbon Dioxide 28.0 mmol/L 22-32 Anion Gap 7.0 mmol/L 2-11 Glucose 96 mg/dL 70-100 Blood Urea Nitrogen 12 mg/dL 6-24 Creatinine 1.10 mg/dL 0.50-1.40 BUN/Creatinine Ratio 10.9 8-20 Calcium 9.4 mg/dL 8.1-9.9 Total Protein 6.4 g/dL 6.2-8.1 Albumin 4.1 g/dL 3.2-5.2 Globulin 2.3 g/dL 2-4 Albumin/Globulin Ratio 1.8 1-3 Total Bilirubin 0.8 mg/dL 0.4-1.5 Alkaline Phosphatase 55 U/L 30-110 Alt 20 U/L 14-54 Ast 20 U/L 12-42 Egfr Non- 65.8 >60 Egfr 84.6 >60 44 Laboratory test finding 02/05/2013 PSA Screening 1.2 ng/mL 0-4.0 45 Vitamin D, 25 Hydroxy 02/05/2013 25-Hydroxy Vitamin D2 5.7 ng/mL 25-Hydroxy Vitamin D3 9.8 ng/mL 25-Hydroxy Vitamin D Total 16 ng/mL 46 Laboratory test finding 07/15/2012 Troponin I 0 ng/mL 0-0.06 47 Basic Metabolic Panel 01/26/2012 Sodium 137 mmol/L 135-145 Potassium 4.5 mmol/L 3.5-5.0 Chloride 102 mmol/L 101-111 Co2 (Carbon Dioxide) 29.0 mmol/L 22-32 Anion Gap 6.0 mmol/L 2-11 48 Glucose 99 mg/dL 70-100 BUN 11 mg/dL 6-24 Creatinine 1.1 mg/dL 0.50-1.40 One Over Creatinine 0.90 BUN/Creatinine Ratio 10.0 8-20 Calcium 9.7 mg/dL 8.1-9.9 eGFR Non- 66.0 > 60 eGFR 84.9 > 60 49 Laboratory test finding 01/26/2012 PTT (Aptt) 30.1 SEC 25.1-38.5 PT W/Inr 01/26/2012 Inr 0.94 0.88-1.13 50 Protime 11.2 SEC 10.3-13.5 51 CBC No Diff 01/26/2012 White Blood Count 6.9 CUMM 4.8-10.8 Red Cell Count 4.54 CUMM Low 4.6-6.2 Hemoglobin 15.1 g/dL 14.0-18.0 Hematocrit 45 % 42-52 Mean Corpuscular Volume 99 um3 High 80-94 Mean Corpuscular Hemoglob 33 pg High 27-31 Mean Corpuscular HGB Cone 34 g/dL 32-36 Redcell Distribution WDTH 14 % 10.5-15 Platelet Count 208 CUMM 150-450 Mean Platelet Volume 8.9 um3 7.4-10.4 CBC With Electronic Diff 06/09/2010 White Blood Count 7.1 CUMM 4.8-10.8 Red Cell Count 4.56 CUMM Low 4.6-6.2 Hemoglobin 15.3 g/dL 14.0-18.0 Hematocrit 45 % 42-52 Mean Corpuscular Volume 98 um3 High 80-94 Mean Corpuscular Hemoglob 34 pg High 27-31 Mean Corpuscular HGB Cone 34 g/dL 32-36 Redcell Distribution WDTH 14 % 10.5-15 Platelet Count 219 CUMM 150-450 Mean Platelet Volume 7.9 um3 7.4-10.4 Gran % 65.5 % 38-83 Lymph % 21.5 % Low 25-47 Mononuclear % 9.7 % High 1-9 Eosinophil % 3.0 % 0-6 Basophil % 0.3 % 0-2 Abs Lymphs 1.5 1.0-4.8 Abs Mononuclear 0.7 0-0.8 Absolute Neutrophil Count 4.7 1.5-7.7 Abs Eosinophils 0.2 0-0.6 Abs Basophils 0 0-0.2 Comp Metabolic Panel 06/09/2010 Sodium 137 mmol/L 135-145 Potassium 3.8 mmol/L 3.5-5.0 Chloride 103 mmol/L 101-111 Co2 (Carbon Dioxide) 26.0 mmol/L 22-32 Anion Gap 8.0 mmol/L 2-11 52 Glucose 94 mg/dL 70-100 53 BUN 14 mg/dL 6-24 Creatinine 1.20 mg/dL 0.50-1.40 One Over Creatinine 0.80 BUN/Creatinine Ratio 11.7 8-20 Calcium 9.3 mg/dL 8.1-9.9 Total Protein 6.3 GM/DL 6.2-8.1 Albumin 3.9 GM/DL 3.2-5.2 Globulin 2.4 GM/DL 2-4 Albumin/Globulin Ratio 1.6 1-3 Bilirubin Total 0.9 mg/dL 0.4-1.5 54 Alkaline Phosphatase 53 U/L 39-117 Alt (SGPT) 15 U/L Low 17-63 Ast (Sgot) 18 U/L 12-42 eGFR Non- 63.6 > 60 eGFR 77.0 > 60 55 Lipid Profile (Trig/Chol/HDL) 06/09/2010 Triglyceride 77 mg/dL 40-200 Cholesterol 190 mg/dL Less Than 200 56 High Density Lipoprotein 33 mg/dL Low 40-60 57 Cholesterol/HDL Ratio 5.76 AVERAGE High 1-4.97 Low Density Lipoprotein 142 mg/dL High Less Than 100 58 Laboratory test finding 06/09/2010 Vitamin B12 417 pg/mL 180-914 Vitamin D, 25 Hydroxy 06/09/2010 25-Hydroxy Vitamin D2 <4.0 ng/mL () 25-Hydroxy Vitamin D3 25 ng/mL () 25-Hydroxy Vitamin D Total 25 ng/mL () 59 Laboratory test finding 06/09/2010 PSA Screening 1.61 NG/ML 0-4 60 Urine DIP 04/13/2010 Leukocytes NEG Neg Urine Nitrites NEG Neg Urine pH 5 5-6 Total Protein, Urine NEG Neg Urine Glucose NORM Norm Urine Ketones NEG Neg Urobilinogen NORM Norm Urine Bilirubin NEG Neg Urine Blood NEG Neg Specific [place] NA Low 1.01-1.02 Comp Metabolic Panel 04/01/2009 Sodium 136 mmol/L 135-145 Potassium 4.8 mmol/L 3.5-5.0 Chloride 102 mmol/L 101-111 Co2 (Carbon Dioxide) 27.0 mmol/L 22-32 Anion Gap 7.0 mmol/L 2-11 61 Glucose 97 mg/dL 70-100 62 BUN 14 mg/dL 6-24 Creatinine 1.10 mg/dL 0.50-1.40 One Over Creatinine 0.90 BUN/Creatinine Ratio 12.7 8-20 Calcium 9.7 mg/dL 8.1-9.9 63 Total Protein 6.8 GM/DL 6.2-8.1 Albumin 4.2 GM/DL 3.2-5.2 Globulin 2.6 GM/DL 2-4 Albumin/Globulin Ratio 1.6 1-3 Bilirubin Total 0.9 mg/dL 0.4-1.5 64 Alkaline Phosphatase 54 U/L 39-117 Alt (SGPT) 18 U/L 17-63 Ast (Sgot) 21 U/L 12-42 eGFR Non- 70.8 > 60 eGFR 85.6 > 60 65 Lipid Profile (Trig/Chol/HDL) 04/01/2009 Triglyceride 63 mg/dL 40-200 Cholesterol 216 mg/dL High Less Than 200 66 High Density Lipoprotein 39 mg/dL Low 40-60 67 Cholesterol/HDL Ratio 5.54 AVERAGE High 1-4.97 Low Density Lipoprotein 164 mg/dL High Less Than 100 68 Laboratory test finding 04/01/2009 PSA Screening 1.10 NG/ML 0-4 69 Comp Metabolic Panel 02/16/2009 Sodium 136 mmol/L 135-145 Potassium 3.8 mmol/L 3.5-5.0 Chloride 106 mmol/L 101-111 Co2 (Carbon Dioxide) 25.0 mmol/L 22-32 Anion Gap 5.0 mmol/L 2-11 70 Glucose 93 mg/dL 70-100 71 BUN 15 mg/dL 6-24 Creatinine 1.10 mg/dL 0.50-1.40 One Over Creatinine 0.90 BUN/Creatinine Ratio 13.6 8-20 Calcium 9.3 mg/dL 8.1-9.9 72 Total Protein 6.3 GM/DL 6.2-8.1 Albumin 4.0 GM/DL 3.2-5.2 Globulin 2.3 GM/DL 2-4 Albumin/Globulin Ratio 1.7 1-3 Bilirubin Total 0.8 mg/dL 0.4-1.5 73 Alkaline Phosphatase 61 U/L 39-117 Alt (SGPT) 17 U/L 17-63 Ast (Sgot) 20 U/L 12-42 eGFR Non- 70.8 > 60 eGFR 85.6 > 60 74 CBC With Manual Diff 02/16/2009 White Blood Count 6.1 CUMM 4.8-10.8 Red Cell Count 4.68 CUMM 4.6-6.2 Hemoglobin 15.7 g/dL 14.0-18.0 Hematocrit 47 % 42-52 Mean Corpuscular Volume 99 um3 High 80-94 Mean Corpuscular Hemoglob 34 pg High 27-31 Mean Corpuscular HGB Cone 34 g/dL 32-36 Redcell Distribution WDTH 15 % 10.5-15 Platelet Count 199 CUMM 150-450 Mean Platelet Volume 8.5 um3 7.4-10.4 Polysegmented Neutrophil 55 % 38-83 Band Neutrophil 1 % 0-8 Lymphocyte 33 % 25-47 Monocyte 10 % 0-13 Eosenophil 1 % 0-6 Absolute Neutrophil Count 3.4 RBC Morphology NORMAL Urine DIP 02/16/2009 Leukocytes NEG Neg Urine Nitrites NEG Neg Urine pH 5 5-6 Total Protein, Urine NEG Neg Urine Glucose NORM Norm Urine Ketones NEG Neg Urobilinogen NORM Norm Urine Bilirubin NEG Neg Urine Blood NEG Neg Specific [place] N/A Low 1.01-1.02 Urine DIP 07/01/2008 Leukocytes neg Neg Urine Nitrites neg Neg Urine pH 5 5-6 Total Protein, Urine neg Neg Urine Glucose norm Norm Urine Ketones neg Neg Urobilinogen norm Norm Urine Bilirubin neg Neg Urine Blood neg Neg Specific [place] n/a Low 1.01-1.02 Basic Metabolic Panel 07/01/2008 Sodium 137 mmol/L 135-145 Potassium 4.4 mmol/L 3.5-5.0 Chloride 107 mmol/L 101-111 Co2 (Carbon Dioxide) 27.0 mmol/L 22-32 Anion Gap 3.0 mmol/L 2-11 75 Glucose 96 mg/dL 70-100 76 BUN 15 mg/dL 6-24 Creatinine 0.97 mg/dL 0.50-1.40 One Over Creatinine 1.00 BUN/Creatinine Ratio 15.5 8-20 Calcium 9.1 mg/dL 8.1-9.9 77 Laboratory test finding 07/01/2008 Methylmalonic Acid 0.16 umol/L <=0.40 78 Vitamin B12 364 pg/mL 180-914 Lipid Profile (Trig/Chol/HDL) 06/24/2008 Triglyceride 78 mg/dL 40-200 Cholesterol 208 mg/dL High Less Than 200 79 High Density Lipoprotein 38 mg/dL Low 40-60 80 Cholesterol/HDL Ratio 5.47 AVERAGE High 1-4.97 Low Density Lipoprotein 154 mg/dL High Less Than 100 81 CBC With Electronic Diff 12/31/2007 White Blood Count 5.7 CUMM 4.8-10.8 Red Cell Count 4.72 CUMM 4.6-6.2 Hemoglobin 15.5 g/dL 14.0-18.0 Hematocrit 46 % 42-52 Mean Corpuscular Volume 97 um3 High 80-94 Mean Corpuscular Hemoglob 33 pg High 27-31 Mean Corpuscular HGB Cone 34 g/dL 32-36 Redcell Distribution WDTH 14 % 10.5-15 Platelet Count 197 CUMM 150-450 Mean Platelet Volume 8.9 um3 7.4-10.4 Gran % 62.7 % 38-83 Lymph % 24.8 % 20-45 Mononuclear % 9.5 % High 1-9 Eosinophil % 2.4 % 0-6 Basophil % 0.6 % 0-2 Abs Lymphs 1.4 1.0-4.8 Abs Mononuclear 0.5 0-0.8 Absolute Neutrophil Count 3.5 1.5-7.7 Abs Eosinophils 0.1 0-0.6 Abs Basophils 0 0-0.2 Basic Metabolic Panel 12/31/2007 Sodium 139 mmol/L 135-145 Potassium 4.3 mmol/L 3.5-5.0 Chloride 109 mmol/L 101-111 Co2 (Carbon Dioxide) 26.0 mmol/L 22-32 Anion Gap 4.0 mmol/L 2-11 82 Glucose 88 mg/dL 70-105 BUN 15 mg/dL 6-24 Creatinine 1.0 mg/dL 0.5-1.4 One Over Creatinine 1.00 BUN/Creatinine Ratio 15.0 8-20 Calcium 9.1 mg/dL 8.7-10.2 Laboratory test finding 12/31/2007 Vitamin B12 380 pg/mL 180-914 PSA Screening 0.99 NG/ML 0-4 83 Comp Metabolic Panel 12/22/2005 One Over Creatinine 1.00 Anion Gap 5.0 mmol/L 2-11 84 Albumin/Globulin Ratio 1.4 1-3 Albumin 3.8 GM/DL 3.2-5.2 Alkaline Phosphatase 56 U/L 39-117 Alt (SGPT) 21 U/L 17-63 Ast (Sgot) 23 U/L 12-42 BUN 13 mg/dL 6-24 Calcium 9.3 mg/dL 8.7-10.2 Chloride 107 mmol/L 101-111 Co2 (Carbon Dioxide) 28.0 mmol/L 22-32 Globulin 2.7 GM/DL 2-4 Glucose 93 mg/dL 70-105 Potassium 4.5 mmol/L 3.5-5.0 Sodium 140 mmol/L 135-145 Bilirubin Total 0.9 mg/dL 0.4-1.5 Total Protein 6.5 GM/DL 6.2-8.1 BUN/Creatinine Ratio 13.0 8-20 Creatinine 1.0 mg/dL 0.5-1.4 CBC With Electronic Diff 12/22/2005 White Blood Count 6.2 CUMM 4.8-10.8 Abs Basophils 0 0-0.2 Abs Eosinophils 0.3 0-0.6 Absolute Neutrophil Count 3.9 1.5-7.7 Abs Lymphs 1.3 1.0-4.8 Abs Mononuclear 0.6 0-0.8 Basophil % 0.6 % 0-2 Hematocrit 45 % 42-52 Hemoglobin 15.5 g/dL 14.0-18.0 Eosinophil % 4.6 % 0-6 Gran % 63.2 % 38-83 Lymph % 21.3 % 20-45 Mean Corpuscular HGB Cone 35 g/dL 32-36 Mean Corpuscular Hemoglob 33 pg High 27-31 Mean Corpuscular Volume 96 um3 High 80-94 Mean Platelet Volume 9.0 um3 7.4-10.4 Mononuclear % 10.3 % High 1-9 Platelet Count 230 CUMM 150-450 Red Cell Count 4.65 CUMM 4.6-6.2 Redcell Distribution WDTH 14 % 10.5-15 Lipid Profile (Trig/Chol/HDL) 12/22/2005 Cholesterol 198 mg/dL Less Than 200 85 Triglyceride 91 mg/dL 40-200 High Density Lipoprotein 42 mg/dL 40-60 Low Density Lipoprotein 138 mg/dL High Less Than 100 86 Cholesterol/HDL Ratio 4.71 AVERAGE 1-4.97 Laboratory test finding 12/22/2005 Vitamin B12 598 pg/mL 180-914 PSA Screening 1.03 NG/ML 0.00-4.00 87 Microalbumin Random 12/22/2005 Kenny Alb/Creatinine Ratio 6.5 UG/MG Less Than 30 88 Urine Urine Creatinine 107.1 mg/dL Microalbumin (MG/L) 7.0 mg/L Comp Metabolic Panel 08/24/2004 Anion Gap 4.0 mmol/L 2-11 89 Albumin/Globulin Ratio 1.7 1-3 Albumin 4.0 GM/DL 3.2-5.2 Alkaline Phosphatase 74 U/L 39-117 Alt (SGPT) 18 U/L 17-63 Ast (Sgot) 19 U/L 12-42 BUN 11 mg/dL 6-24 Calcium 9.6 mg/dL 8.7-10.2 Chloride 105 mmol/L 101-111 Co2 (Carbon Dioxide) 29.0 mmol/L 22-32 Creatinine 1.0 mg/dL 0.5-1.4 Globulin 2.3 GM/DL 2-4 Glucose 94 mg/dL 70-105 Potassium 4.6 mmol/L 3.5-5.0 Sodium 138 mmol/L 135-145 Bilirubin Total 0.7 mg/dL 0.4-1.5 Total Protein 6.3 GM/DL 6.2-8.1 BUN/Creatinine Ratio 11.0 8-20 Lipid Profile (Trig/Chol/HDL) 08/24/2004 Cholesterol 177 mg/dL Less Than 200 90 Triglyceride 59 mg/dL 40-200 High Density Lipoprotein 40 mg/dL 40-60 Low Density Lipoprotein 125 mg/dL High Less Than 100 91 Cholesterol/HDL Ratio 4.43 AVERAGE 1-4.97 CBC With Electronic Diff 08/24/2004 White Blood Count 5.5 CUMM 4.8-10.8 Abs Basophils 0 0-0.2 Abs Eosinophils 0.2 0-0.6 Abs Grans 3.3 1.5-7.7 Abs Lymphs 1.4 1.0-4.8 Abs Mononuclear 0.5 0-0.8 Basophil % 0.5 % 0-2 Hematocrit 49 % 42-52 Hemoglobin 16.4 g/dL 14.0-18.0 Eosinophil % 4.5 % 0-6 Gran % 60.6 % 38-83 Lymph % 24.7 % 20-45 Mean Corpuscular HGB Cone 34 g/dL 32-36 Mean Corpuscular Hemoglob 33 pg High 27-31 Mean Corpuscular Volume 99 um3 High 80-94 Mean Platelet Volume 9.9 um3 7.4-10.4 Mononuclear % 9.7 % High 1-9 Platelet Count 205 CUMM 150-450 Red Cell Count 4.95 CUMM 4.6-6.2 Redcell Distribution WDTH 14 % 10.5-15 Laboratory test finding 08/24/2004 Vitamin B12 416 pg/mL 180-914 Laboratory test finding 10/28/2003 PSA Screening 0.9 NG/ML 0-4 92 Lipid Profile 10/28/2003 Cholesterol/HDL Ratio 5.16 AVERAGE High 1-4.97 (Trig/Chol/HDL) Cholesterol 222 mg/dL High Less Than 200 93 Triglyceride 78 mg/dL 40-200 High Density Lipoprotein 43 mg/dL 40-60 Low Density Lipoprotein 163 mg/dL High Less Than 100 94 Urine DIP 10/28/2003 Leukocytes NEG Neg Urine Nitrites NEG Neg Urine pH 5 5-6 Total Protein, Urine NL Neg Urine Glucose NL Norm Urine Ketones NL Neg Urobolinogen NL Norm Urine Bilirubin NL Neg Urine Blood NL Neg Specific [place] N/A Low 1.01-1.02 Comp Metabolic Panel 07/01/2003 Anion Gap 6.0 mmol/L 2-11 95 Albumin/Globulin Ratio 1.4 1-3 Albumin 3.9 GM/DL 3.2-5.2 BUN 12 mg/dL 6-24 Calcium 9.4 mg/dL 8.7-10.2 Chloride 104 mmol/L 101-111 Co2 (Carbon Dioxide) 29.0 mmol/L 22-32 Creatinine 1.0 mg/dL 0.5-1.4 Globulin 2.7 GM/DL 2-4 Glucose 93 mg/dL 70-105 Potassium 4.8 mmol/L 3.5-5.0 Sodium 139 mmol/L 135-145 Total Protein 6.6 GM/DL 6.2-8.1 BUN/Creatinine Ratio 12.0 8-20 Alkaline Phosphatase 60 U/L 39-117 Alt (SGPT) 17 U/L 17-63 Ast (Sgot) 16 U/L 12-42 Bilirubin Total 0.4 mg/dL 0.4-1.5 Laboratory test finding 07/01/2003 Vitamin B12 586 pg/mL 180-914 CBC With Electronic Diff 07/01/2003 Platelet Count 196 CUMM 150-450 White Blood Count 5.6 CUMM 4.8-10.8 Abs Basophils 0 0-0.2 Abs Eosinophils 0 0-0.6 Abs Grans 3.9 1.5-7.7 Abs Lymphs 1.2 1.0-4.8 Abs Mononuclear 0.5 0-0.8 Basophil % 0.5 % 0-2 Hematocrit 45 % 42-52 Hemoglobin 15.0 g/dL 14.0-18.0 Eosinophil % 0.4 % 0-6 Gran % 67.4 % 38-83 Lymph % 22.0 % 20-45 Mean Corpuscular HGB Cone 33 g/dL 32-36 Mean Corpuscular Hemoglob 32 pg High 27-31 Mean Corpuscular Volume 97 um3 High 80-94 Mean Platelet Volume 8.3 um3 7.4-10.4 Mononuclear % 9.7 % High 1-9 Red Cell Count 4.63 CUMM 4.6-6.2 Redcell Distribution WDTH 12 % 10.5-15 Laboratory test finding 07/01/2003 TSH 2.07 MIU/ML 0.34-5.60 Urine DIP 04/29/2002 Leukocytes NEG Neg Urine Nitrites NEG Neg Urine pH 5 5-6 Total Protein, Urine NL Neg Urine Glucose NL Norm Urine Ketones NL Neg Urobolinogen NL Norm Urine Bilirubin NL Neg Urine Blood NL Neg Specific [place] N/A Low 1.01-1.02 CBC 04/29/2002 WBC 6.7 x10*3 4.3 - 10.9 RBC 4.76 x10*6 4.2 - 5.6 Hemoglobin 16.0 g/dL 13.0 - 17.0 Hematocrit 47.2 % 39.0 - 50.0 MCV 99.1 fl High 82.0 - 98.0 MCH 33.6 pg High 27.5 - 33.5 MCHC 33.9 g/dL 32.0 - 36.0 RDW 13.7 % 11.5 - 14.5 Platelet Count 235 x10*3 130.0 - 400.0 MPV 8.9 fl 6.5 - 10.5 Lymphocytes 23.5 % 15.0 - 45.0 Monocytes 9.0 % 2.0 - 13.0 Eosinophils 5.4 % 0.0 - 6.0 Basophils 0.4 % 0.0 - 2.0 Neutrophil Absolute 4.1 x10*3 1.4 - 7.0 Lymphocytes Absolute 1.6 x10*3 1.0 - 3.4 Monocyte Absolute 0.6 x10*3 0.2 - 1.0 Eosinophil Absolute 0.4 x10*3 0.0 - 0.5 Basophil Absolute 0.0 x10*3 0.0 - 0.2 Lipid Profile 04/29/2002 Triglycerides 81 mg/dL 23.0 - 253.0 Cholesterol, Total 207 mg/dL High 120.0 - 200.0 96 HDL Cholesterol 50 mg/dL 35.0 - 9999.0 LDL Cholesterol 141 mg/dL 97 LDL/HDL Cholesterol 2.8 98 Chol/HDL Cholesterol 4.1 99 Comprehensive Metabolic 04/29/2002 Glucose 86 mg/dL 61.0 - 113.0 BUN 12 mg/dL 5.0 - 21.0 Creatinine, Serum 1.0 mg/dL 0.6 - 1.5 Sodium 137 mmol/L 135.0 - 146.0 Potassium 4.0 mmol/L 3.6 - 5.0 Chloride 104 mmol/L 98.0 - 108.0 Carbon Dioxide 28 mmol/L 23.0 - 33.0 Albumin 4.0 g/dL 3.8 - 4.6 Protein, Total 7.3 g/dL 6.2 - 8.0 Calcium 9.4 mg/dL 8.3 - 10.3 Alkaline Phosphatase 67 U/L 45.0 - 120.0 Sgot (Ast) 22 U/L 9.0 - 43.0 SGPT (Alt) 27 U/L 11.0 - 51.0 Bilirubin, Total 0.40 mg/dL 0.2 - 1.3 Laboratory test finding 04/29/2002 TSH (Baseline) 2.27 uIU/ml 0.2 - 5.4 Testosterone, Total 550.0 ng/dL 100 CBC 02/13/2001 WBC 6.1 x10*3 4.3 - 10.9 RBC 4.71 x10*6 4.2 - 5.6 Hemoglobin 15.3 g/dL 13.0 - 17.0 Hematocrit 46.2 % 39.0 - 50.0 MCV 98.0 fl 82.0 - 98.0 MCH 32.4 pg 27.5 - 33.5 MCHC 33.1 g/dL 32.0 - 36.0 RDW 13.6 % 11.5 - 14.5 Platelet Count 211 x10*3 130.0 - 400.0 MPV 9.2 fl 6.5 - 10.5 Segmented Neutrophils 59.9 % 44.0 - 74.0 Band 0.0 % 0.0 - 4.0 Lymphocytes 25.6 % 15.0 - 45.0 Monocytes 9.4 % 2.0 - 13.0 Eosinophils 4.9 % 0.0 - 6.0 Basophils 0.2 % 0.0 - 2.0 Neutrophil Absolute 3.7 x10*3 1.4 - 7.0 Lymphocytes Absolute 1.6 x10*3 1.0 - 3.4 Monocyte Absolute 0.6 x10*3 0.2 - 1.0 Eosinophil Absolute 0.3 x10*3 0.0 - 0.5 Basophil Absolute 0.0 x10*3 0.0 - 0.2 Basic Metabolic Panel 02/13/2001 Glucose 90 mg/dL 61.0 - 113.0 BUN 10 mg/dL 5.0 - 21.0 Creatinine, Serum 0.9 mg/dL 0.6 - 1.5 Sodium 142 mmol/L 135.0 - 146.0 Potassium 4.4 mmol/L 3.6 - 5.0 Chloride 104 mmol/L 98.0 - 108.0 Carbon Dioxide 26 mmol/L 23.0 - 33.0 Calcium 9.0 mg/dL 8.3 - 10.3 101 Laboratory test finding 02/13/2001 PSA 1.3 ng/ml 0 - 4 102 Vitamin B-12 835 pg/mL 0.0 - 0.0 103 1 Acute inflammation: >10.00 2 Normal Range 180 to 914 Indeterminate Range 145 to 180 Deficient Range <145 3 Because ethnic data is not always readily available, this report includes an eGFR for both -Americans and non- Americans. The National Kidney Disease Education Program (NKDEP) does not endorse the use of the MDRD equation for patients that are not between the ages of 18 and 70, are , have extremes of body size, muscle mass, or nutritional status, or are non- or non-. According to the [employer] Kid[employer] Foundation, irrespective of diagnosis, the stage of the disease is based on the level of kidney function: Stage Description GFR(mL/min/1.73 m(2)) 1 Kidney damage with normal or decreased GFR 90 2 Kidney damage with mild decrease in GFR 60-89 3 Moderate decrease in GFR 30-59 4 Severe decrease in GFR 15-29 5 Kidney failure <15 (or dialysis) 4 SEE RESULT BELOW Name: ARUN HAYNES JR, V : [address]: Waldo Srinivasan MD Acct: [id number] Unit: [id number] AGE: 76 Location: [facility] Re01/31/17 SEX: M Status: DEP REF SPEC: [id number] ISI: [id number] KANNAN DR: Waldo Srinivasan MD REQ: [id number] RECD: 01/31/17 STATUS: LEANA KHAN DR: Miguel Angel Sauceda MD _ ORDERED: LEVEL 4/2 FINAL DIAGNOSIS 1. Colon, right, biopsy: -- Sessile serrated adenomatous polyps. -- No high-grade dysplasia identified. 2. Colon, hepatic flexure, biopsy: -- Hyperplastic polyp. CLINICAL HISTORY Positive Cologuard test POST-OPERATIVE DIAGNOSIS Colonoscopy into terminal ileum, prep good - 3 small polyps removed. Conclusions/Plan: Three polyps removed GROSS DESCRIPTION 1. The specimen is received in formalin labeled, Biopsy Right Colon Polyps (2), and consists of two delacruz-pink irregular to polypoid soft tissue fragments averaging 0.4 x 0.3 x 0.2 cm which are submitted entirely in one cassette. 2. The specimen is received in formalin labeled, Biopsy Hepatic Flexure Polyp, and consists of a 0.3 x 0.2 x 0.2 cm delacruz-pink polypoid soft tissue fragment which is inked and submitted entirely in one cassette. Signed (signature on file) Edwar Daily MD 1212 END OF REPORT * ML=Testing performed at Main Lab DEPARTMENT OF PATHOLOGY, [address] [place] [address] Edwar Daily M.D. Director [facility] # [id number] SEE RESULT BELOW Name: ARUN HAYNES JR, V : [address]: Miguel Angel Sauceda MD Acct: [id number] Unit: [id number] AGE: 76 Location: [facility] Re10/05/16 SEX: M Status: REG REF SPEC: [id number] ISI: 10/05/16-[address]: Miguel Angel Sauceda MD REQ: [id number] RECD: 10/05/16 STATUS: SOUT _ ORDERED: LEVEL IV COMMENTS: [id number] FINAL DIAGNOSIS Skin, left neck, excision: -- Seborrheic keratosis. CLINICAL HISTORY No history given GROSS DESCRIPTION The specimen is received in formalin labeled, Left Neck Skin Tag, and consists of a 0.3 x 0.3 x 0.2 cm delacruz-martin wrinkled polypoid skin fragment, which is inked and submitted entirely in one cassette. Signed (signature on file) Edwar Daily MD 1355 END OF REPORT * ML=Testing performed at Main Lab DEPARTMENT OF PATHOLOGY, [address] [place] [address] Edwar Daily M.D. Director [facility] # [id number] 7 [id number] Serum levels of PSA measured using the [employer] DXI Hybritech immunoassay should not be interpreted as absolute evidence of the presence or absence of disease. The PSA value should be used in conjunction with other pertinent clinical diagnostic procedures. The values obtained with different assay methods or kits cannot be used interchangeably. 9 [id number] 10 Because ethnic data is not always readily available, this report includes an eGFR for both -Americans and non- Americans. The National Kidney Disease Education Program (NKDEP) does not endorse the use of the MDRD equation for patients that are not between the ages of 18 and 70, are , have extremes of body size, muscle mass, or nutritional status, or are non- or non-. According to the National Kidney Foundation, irrespective of diagnosis, the stage of the disease is based on the level of kidney function: Stage Description GFR(mL/min/1.73 m(2)) 1 Kidney damage with normal or decreased GFR 90 2 Kidney damage with mild decrease in GFR 60-89 3 Moderate decrease in GFR 30-59 4 Severe decrease in GFR 15-29 5 Kidney failure <15 (or dialysis) 11 Specimen sent to [facility] TestObject [id number] 12 No bands detected 13 Specific serologic response to B. burgdorferi infection is not detected, but cannot rule out early infection during which low or undetectable antibody levels to B. burgdorferi may be present. If clinically indicated, a new serum specimen should be submitted in 7-14 days. ADDITIONAL INFORMATION CDC criteria require >=5 bands for IgG or >=2 bands for IgM for the Immunoblot to be considered positive. Bands (e.g.,p41) may be detected in patients without Lyme disease, and patterns not meeting the CDC criteria should be interpreted with caution. Immunoblot should be ordered only on specimens that are positive or equivocal by a FDA-licensed Lyme disease antibody screening test (e.g., EIA). Test Performed by: [address] [address] [place] [employer]: Keith Sher II, M.D., Ph.D. 14 Reference Range and Interpretation: TnI (ng/mL) Interpretation Less Than 0.03 ng/mL Not supportive of diagnosis of [place] 0.03 - 0.50 ng/mL Indeterminate: suggest serial studies if clinically indicated. Greater than 0.5 ng/mL Consistent with diagnosis of [place] 15 Acute inflammation: >10.00 16 SEE RESULT BELOW Name: ARUN HAYNES JR : [address]: Tucker Beck DO Acct: [id number] Unit: [id number] AGE: 75 Location: ED Re01/30/16 SEX: M Status: DEP ER SPEC: [id number] ISI: 01/30/16-[address] [facility] [address]: Tucker Beck DO REQ: [id number] RECD: 01/30/16155 STATUS: MALICK KHAN DR: Miguel Angel Sauceda MD _ SOURCE: BLOOD,VENO SPDESC: ORDERED: Blood Cult Procedure Result Reported Site Aerobic Culture Bottle Final 02/04/16- 1556 ML No Growth Day 5 Anaerobic Culture Bottle Final 02/04/16- 1556 ML No Growth Day 5 * ML - MAIN LAB ([facility]) . END OF REPORT * ML=Testing performed at Main Lab DEPARTMENT OF PATHOLOGY, [address] [place] [address] Edwar Daily M.D. Director [facility] # [id number] 17 Because ethnic data is not always readily available, this report includes an eGFR for both -Americans and non- Americans. The National Kidney Disease Education Program (NKDEP) does not endorse the use of the MDRD equation for patients that are not between the ages of 18 and 70, are , have extremes of body size, muscle mass, or nutritional status, or are non- or non-. According to the National Kidney Foundation, irrespective of diagnosis, the stage of the disease is based on the level of kidney function: Stage Description GFR(mL/min/1.73 m(2)) 1 Kidney damage with normal or decreased GFR 90 2 Kidney damage with mild decrease in GFR 60-89 3 Moderate decrease in GFR 30-59 4 Severe decrease in GFR 15-29 5 Kidney failure <15 (or dialysis) 18 SEE RESULT BELOW Name: ARUN HAYNES V : [address]: Yanna Cabrera MD Acct: [id number] Unit: [id number] AGE: 75 Location: LAB Re01/29/16 SEX: M Status: REG REF SPEC: [id number] ISI: 01/29/16-[address] [facility] [address]: Yanna Cabrera MD REQ: [id number] RECD: 01/29/16 STATUS: COMP _ SOURCE: URINE SPDESC: ORDERED: Urine Culture Urine Source: Clean Catch Procedure Result Reported Site Urine Culture Final 01/30/16- 1157 ML No Growth (<1,000 CFU/mL) * ML - MAIN LAB ([facility]) . END OF REPORT * ML=Testing performed at Main Lab DEPARTMENT OF PATHOLOGY, [address] [place] [address] Edwar Daily M.D. Director [facility] # [id number] 19 ADDITIONAL INFORMATION Analyte Specific Reagent: This test was developed and its performance characteristics determined by [facility]. It has not been cleared or approved by the U.S. Food and Drug Administration. 20 ADDITIONAL INFORMATION Analyte Specific Reagent: This test was developed and its performance characteristics determined by [facility]. It has not been cleared or approved by the U.S. Food and Drug Administration. Test Performed by: [facility] [place] [address] [place] [employer]: Keith Sher II, M.D., Ph.D. 21 No antibodies to WNV detected. Repeat testing in 10-14 days if clinical suspicion persists. Test Performed by: [address] [address] [place] [employer]: Keith Sher II, M.D., Ph.D. 22 Acute inflammation: >10.00 23 No bands detected 24 Specific serologic response to B. burgdorferi infection is not detected, but cannot rule out early infection during which low or undetectable antibody levels to B. burgdorferi may be present. If clinically indicated, a new serum specimen should be submitted in 7-14 days. ADDITIONAL INFORMATION CDC criteria require >=5 bands for IgG or >=2 bands for IgM for the Immunoblot to be considered positive. Bands (e.g.,p41) may be detected in patients without Lyme disease, and patterns not meeting the CDC criteria should be interpreted with caution. Immunoblot should be ordered only on specimens that are positive or equivocal by a FDA-licensed Lyme disease antibody screening test (e.g., EIA). Test Performed by: [place] [address] [place] [employer]: Keith Sher II, M.D., Ph.D. 25 Because ethnic data is not always readily available, this report includes an eGFR for both -Americans and non- Americans. The National Kidney Disease Education Program (NKDEP) does not endorse the use of the MDRD equation for patients that are not between the ages of 18 and 70, are , have extremes of body size, muscle mass, or nutritional status, or are non- or non-. According to the National Kidney Foundation, irrespective of diagnosis, the stage of the disease is based on the level of kidney function: Stage Description GFR(mL/min/1.73 m(2)) 1 Kidney damage with normal or decreased GFR 90 2 Kidney damage with mild decrease in GFR 60-89 3 Moderate decrease in GFR 30-59 4 Severe decrease in GFR 15-29 5 Kidney failure <15 (or dialysis) 26 Because ethnic data is not always readily available, this report includes an eGFR for both -Americans and non- Americans. The National Kidney Disease Education Program (NKDEP) does not endorse the use of the MDRD equation for patients that are not between the ages of 18 and 70, are , have extremes of body size, muscle mass, or nutritional status, or are non- or non-. According to the National Kidney Foundation, irrespective of diagnosis, the stage of the disease is based on the level of kidney function: Stage Description GFR(mL/min/1.73 m(2)) 1 Kidney damage with normal or decreased GFR 90 2 Kidney damage with mild decrease in GFR 60-89 3 Moderate decrease in GFR 30-59 4 Severe decrease in GFR 15-29 5 Kidney failure <15 (or dialysis) 27 Reference Range and Interpretation: TnI (ng/mL) Interpretation Less Than 0.03 ng/mL Not supportive of diagnosis of [place] 0.03 - 0.50 ng/mL Indeterminate: suggest serial studies if clinically indicated. Greater than 0.5 ng/mL Consistent with diagnosis of [place] 28 Serologic response to B. burgdorferi infection is not detected, but cannot rule out early infection during which low or undetectable antibody levels to B. burgdorferi may be present. If clinically indicated, a new serum specimen should be submitted in 7-14 days. Test Performed by: [place] [id number] [place] [employer]: Keith Sher II, M.D., Ph.D. 29 Because ethnic data is not always readily available, this report includes an eGFR for both -Americans and non- Americans. The National Kidney Disease Education Program (NKDEP) does not endorse the use of the MDRD equation for patients that are not between the ages of 18 and 70, are , have extremes of body size, muscle mass, or nutritional status, or are non- or non-. According to the National Kidney Foundation, irrespective of diagnosis, the stage of the disease is based on the level of kidney function: Stage Description GFR(mL/min/1.73 m(2)) 1 Kidney damage with normal or decreased GFR 90 2 Kidney damage with mild decrease in GFR 60-89 3 Moderate decrease in GFR 30-59 4 Severe decrease in GFR 15-29 5 Kidney failure <15 (or dialysis) 30 Normal Range 180 to 914 Indeterminate Range 145 to 180 Deficient Range <145 31 Desirable <150 Borderline high 150-199 High 200-499 Very High >500 32 Desirable <200 Borderline high 200-239 High >239 33 Low <40 Desirable: 40-60 High: >60 34 Desirable: <100 mg/dL Near Optimal: 100-129 mg/dL Borderline High: 130-159 mg/dL High: 160-189 mg/dL Very High: >189 mg/dL 35 Serologic response to B. burgdorferi infection is not detected, but cannot rule out early infection during which low or undetectable antibody levels to B. burgdorferi may be present. If clinically indicated, a new serum specimen should be submitted in 7-14 days. Test Performed by: [address] [address] [place] [employer]: Keith Sher II, M.D., Ph.D. 36 Test Performed by: [address] [address] [place] [employer]: Keith Sher II, M.D., Ph.D. 37 Serum levels of PSA measured using the [employer] DXI Hybritech immunoassay should not be interpreted as absolute evidence of the presence or absence of disease. The PSA value should be used in conjunction with other pertinent clinical diagnostic procedures. The values obtained with different assay methods or kits cannot be used interchangeably. 38 Jeannie Ravi 39 Potassium reference range changed effective 05/31/14 40 Because ethnic data is not always readily available, this report includes an eGFR for both -Americans and non- Americans. The National Kidney Disease Education Program (NKDEP) does not endorse the use of the MDRD equation for patients that are not between the ages of 18 and 70, are , have extremes of body size, muscle mass, or nutritional status, or are non- or non-. According to the National Kidney Foundation, irrespective of diagnosis, the stage of the disease is based on the level of kidney function: Stage Description GFR(mL/min/1.73 m(2)) 1 Kidney damage with normal or decreased GFR 90 2 Kidney damage with mild decrease in GFR 60-89 3 Moderate decrease in GFR 30-59 4 Severe decrease in GFR 15-29 5 Kidney failure <15 (or dialysis) 41 Because ethnic data is not always readily available, this report includes an eGFR for both -Americans and non- Americans. The National Kidney Disease Education Program (NKDEP) does not endorse the use of the MDRD equation for patients that are not between the ages of 18 and 70, are , have extremes of body size, muscle mass, or nutritional status, or are non- or non-. According to the National Kidney Foundation, irrespective of diagnosis, the stage of the disease is based on the level of kidney function: Stage Description GFR(mL/min/1.73 m(2)) 1 Kidney damage with normal or decreased GFR 90 2 Kidney damage with mild decrease in GFR 60-89 3 Moderate decrease in GFR 30-59 4 Severe decrease in GFR 15-29 5 Kidney failure <15 (or dialysis) 42 Serum levels of PSA measured using the [employer] [place] DXI Hybritech immunoassay should not be interpreted as absolute evidence of the presence or absence of disease. The PSA value should be used in conjunction with other pertinent clinical diagnostic procedures. The values obtained with different assay methods or kits cannot be used interchangeably. 43 -- REFERENCE VALUE -- 25-HYDROXY D TOTAL (D2+D3) Optimum levels in the healthy population are 20-50, patients with bone disease may benefit from higher levels within this range. Test Performed by: [place] [address] [place] [employer]: Heber Garcia III, M.D. 44 Because ethnic data is not always readily available, this report includes an eGFR for both -Americans and non- Americans. The National Kidney Disease Education Program (NKDEP) does not endorse the use of the MDRD equation for patients that are not between the ages of 18 and 70, are , have extremes of body size, muscle mass, or nutritional status, or are non- or non-. According to the National Kidney Foundation, irrespective of diagnosis, the stage of the disease is based on the level of kidney function: Stage Description GFR(mL/min/1.73 m(2)) 1 Kidney damage with normal or decreased GFR 90 2 Kidney damage with mild decrease in GFR 60-89 3 Moderate decrease in GFR 30-59 4 Severe decrease in GFR 15-29 5 Kidney failure <15 (or dialysis) 45 Serum levels of PSA measured using the [employer] [place] DXI Hybritech immunoassay should not be interpreted as absolute evidence of the presence or absence of disease. The PSA value should be used in conjunction with other pertinent clinical diagnostic procedures. The values obtained with different assay methods or kits cannot be used interchangeably. 46 Interpretation: 10-24 (mild to moderate deficiency) -- REFERENCE VALUE -- 25-HYDROXY D TOTAL (D2+D3) Optimum levels in the normal population are 25-80 Test Performed by: [place] [id number] [place] [employer]: Heber Garcia III, M.D. 47 Reference Range and Interpretation: TnI (ng/ml) Interpretation Less Than 0.06 ng/mL Not supportive of diagnosis of OK 0.06 - 0.50 ng/ml Indeterminate: suggest serial studies if clinically indicated. Greater than 0.5 ng/mL Consistent with diagnosis of [place] 48 Anion gap measurement may be of limited value in the presence of any alkalosis, especially in a combined acid base disorder. . 49 Because ethnic data is not always readily available, this report includes an eGFR for both -Americans and non- Americans. The National Kidney Disease Education Program (NKDEP) does not endorse the use of the MDRD equation for patients that are not between the ages of 18 and 70, are , have extremes of body size, muscle mass, or nutritional status, or are non- or non-. According to the National Kidney Foundation, irrespective of diagnosis, the stage of the disease is based on the level of kidney function: Stage Description GFR(mL/min/1.73 m(2)) 1 Kidney damage with normal or decreased GFR 90 2 Kidney damage with mild decrease in GFR 60-89 3 Moderate decrease in GFR 30-59 4 Severe decrease in GFR 15-29 5 Kidney failure <15 (or dialysis) 50 Recommended INR for Patients on Oral Anticoagulants Prophylaxis 2.0 - 3.0 Treatment of thrombosis 2.0 - 3.0 Prevention of embolism 2.0 - 3.0 Prevention of embolism from prosthetic heart valves 2.5 - 3.5 51 DIAGNOSIS,TREATMENT,AND THERAPY MUST BE BASED ON THE INR VALUE ALONE. 52 Anion gap measurement may be of limited value in the presence of any alkalosis, especially in a combined acid base disorder. . 53 Note change in reference range as of 03/19/08. The change was based on recommendations from the [place] [employer]. 54 A metabolite of Naproxen, O-desmethylnaproxen, has been shown to interfere with the Jendrassik-[place] method for measuring total bilirubin. Samples from patients who have taken Naproxen have shown spurious elevation in total bilirubin levels. 55 Because ethnic data is not always readily available, this report includes an eGFR for both -Americans and non- Americans. The National Kidney Disease Education Program (NKDEP) does not endorse the use of the MDRD equation for patients that are not between the ages of 18 and 70, are , have extremes of body size, muscle mass, or nutritional status, or are non- or non-. According to the National Kidney Foundation, irrespective of diagnosis, the stage of the disease is based on the level of kidney function: Stage Description GFR(mL/min/1.73 m(2)) 1 Kidney damage with normal or decreased GFR 90 2 Kidney damage with mild decrease in GFR 60-89 3 Moderate decrease in GFR 30-59 4 Severe decrease in GFR 15-29 5 Kidney failure <15 (or dialysis) 56 CHOLESTEROL INTERPRETATION: Desirable: Less than 200 MG/DL Borderline-High Risk: 200-239 MG/DL High-Risk: 240 MG/DL and over 57 HDL INTERPRETATION: Undesirable: High Risk: Less than 40 MG/DL Desirable: Low Risk: Greater than 60 MG/DL 58 LDL INTERPRETATION: Low Risk Optimal Level: LDL Less than 100 MG/DL Near or Above Optimal: LDL 100-129 MG/DL Borderline High Risk: LDL 130-159 MG/DL High Risk: LDL 160-189 MG/DL Very High Risk: LDL Greater than 189 MG/DL 59 -- REFERENCE VALUE -- 25-HYDROXY D TOTAL (D2+D3) Optimum levels in the normal population are 25-80 Test Performed by: [facility] [address] [place] [address] [place] [employer]: Heber Garcia III, M.D. 60 * SERUM LEVELS OF PSA MEASURED USING THE [employer] ACCESS HYBRITECH IMMUNOASSAY SHOULD NOT BE INTERPRETED ABSOLUTE EVIDENCE OF THE PRESENCE OR ABSENCE OF DISEASE. THE PSA VALUE SHOULD BE USED IN CONJUNCTION WITH OTHER PERTINENT CLINICAL DIAGNOSTIC PROCEDURES. 61 Anion gap measurement may be of limited value in the presence of any alkalosis, especially in a combined acid base disorder. . 62 Note change in reference range as of 03/19/08. The change was based on recommendations from the [place] [employer]. 63 Please note change in reference range effective 08 . 64 A metabolite of Naproxen, O-desmethylnaproxen, has been shown to interfere with the Jendrassik-[place] method for measuring total bilirubin. Samples from patients who have taken Naproxen have shown spurious elevation in total bilirubin levels. 65 Because ethnic data is not always readily available, this report includes an eGFR for both -Americans and non- Americans. The National Kidney Disease Education Program (NKDEP) does not endorse the use of the MDRD equation for patients that are not between the ages of 18 and 70, are , have extremes of body size, muscle mass, or nutritional status, or are non- or non-. According to the National Kidney Foundation, irrespective of diagnosis, the stage of the disease is based on the level of kidney function: Stage Description GFR(mL/min/1.73 m(2)) 1 Kidney damage with normal or decreased GFR 90 2 Kidney damage with mild decrease in GFR 60-89 3 Moderate decrease in GFR 30-59 4 Severe decrease in GFR 15-29 5 Kidney failure <15 (or dialysis) 66 CHOLESTEROL INTERPRETATION: Desirable: Less than 200 MG/DL Borderline-High Risk: 200-239 MG/DL High-Risk: 240 MG/DL and over 67 HDL INTERPRETATION: Undesirable: High Risk: Less than 40 MG/DL Desirable: Low Risk: Greater than 60 MG/DL 68 LDL INTERPRETATION: Low Risk Optimal Level: LDL Less than 100 MG/DL Near or Above Optimal: LDL 100-129 MG/DL Borderline High Risk: LDL 130-159 MG/DL High Risk: LDL 160-189 MG/DL Very High Risk: LDL Greater than 189 MG/DL 69 * SERUM LEVELS OF PSA MEASURED USING THE [employer] ACCESS HYBRITECH IMMUNOASSAY SHOULD NOT BE INTERPRETED ABSOLUTE EVIDENCE OF THE PRESENCE OR ABSENCE OF DISEASE. THE PSA VALUE SHOULD BE USED IN CONJUNCTION WITH OTHER PERTINENT CLINICAL DIAGNOSTIC PROCEDURES. 70 Anion gap measurement may be of limited value in the presence of any alkalosis, especially in a combined acid base disorder. . 71 Note change in reference range as of 03/19/08. The change was based on recommendations from the [place] [employer]. 72 Please note change in reference range effective 08 . 73 A metabolite of Naproxen, O-desmethylnaproxen, has been shown to interfere with the Jendrassik-Ladonna method for measuring total bilirubin. Samples from patients who have taken Naproxen have shown spurious elevation in total bilirubin levels. 74 Because ethnic data is not always readily available, this report includes an eGFR for both -Americans and non- Americans. The National Kidney Disease Education Program (NKDEP) does not endorse the use of the MDRD equation for patients that are not between the ages of 18 and 70, are , have extremes of body size, muscle mass, or nutritional status, or are non- or non-. According to the National Kidney Foundation, irrespective of diagnosis, the stage of the disease is based on the level of kidney function: Stage Description GFR(mL/min/1.73 m(2)) 1 Kidney damage with normal or decreased GFR 90 2 Kidney damage with mild decrease in GFR 60-89 3 Moderate decrease in GFR 30-59 4 Severe decrease in GFR 15-29 5 Kidney failure <15 (or dialysis) 75 Anion gap measurement may be of limited value in the presence of any alkalosis, especially in a combined acid base disorder. . 76 Note change in reference range as of 03/19/08. The change was based on recommendations from the [place] [employer]. 77 Please note change in reference range effective 08 . 78 Test Performed by: [facility] [address] [place] [address] [place] [employer]: Heber Garcia III, M.D. 79 CHOLESTEROL INTERPRETATION: Desirable: Less than 200 MG/DL Borderline-High Risk: 200-239 MG/DL High-Risk: 240 MG/DL and over 80 HDL INTERPRETATION: Undesirable: High Risk: Less than 40 MG/DL Desirable: Low Risk: Greater than 60 MG/DL 81 LDL INTERPRETATION: Low Risk Optimal Level: LDL Less than 100 MG/DL Near or Above Optimal: LDL 100-129 MG/DL Borderline High Risk: LDL 130-159 MG/DL High Risk: LDL 160-189 MG/DL Very High Risk: LDL Greater than 189 MG/DL 82 Anion gap measurement may be of limited value in the presence of any alkalosis, especially in a combined acid base disorder. . 83 * SERUM LEVELS OF PSA MEASURED USING THE [employer] ACCESS HYBRITECH IMMUNOASSAY SHOULD NOT BE INTERPRETED ABSOLUTE EVIDENCE OF THE PRESENCE OR ABSENCE OF DISEASE. THE PSA VALUE SHOULD BE USED IN CONJUNCTION WITH OTHER PERTINENT CLINICAL DIAGNOSTIC PROCEDURES. 84 Anion gap measurement may be of limited value in the presence of any alkalosis, especially in a combined acid base disorder. . 85 Classification: Desirable . 86 CALCULATED LDL APPROXIMATES THE VALUE OF A DIRECT LDL MEASUREMENT. Classification: Borderline High . 87 * SERUM LEVELS OF PSA MEASURED USING THE [employer] ACCESS HYBRITECH IMMUNOASSAY SHOULD NOT BE INTERPRETED ABSOLUTE EVIDENCE OF THE PRESENCE OR ABSENCE OF DISEASE. THE PSA VALUE SHOULD BE USED IN CONJUNCTION WITH OTHER PERTINENT CLINICAL DIAGNOSTIC PROCEDURES. 88 MICROALBUMINURIA IN A RANDOM SAMPLE IS DEFINED : MICROALBUMIN/CREATININE RATIO OF 30-299 ug/mg. . 89 Anion gap measurement may be of limited value in the presence of any alkalosis, especially in a combined acid base disorder. . 90 Classification: Desirable . 91 CALCULATED LDL APPROXIMATES THE VALUE OF A DIRECT LDL MEASUREMENT. Classification: Near or above optimal . 92 * SERUM LEVELS OF PSA MEASURED USING THE [employer] ACCESS HYBRITECH IMMUNOASSAY SHOULD NOT BE INTERPRETED ABSOLUTE EVIDENCE OF THE PRESENCE OR ABSENCE OF DISEASE. THE PSA VALUE SHOULD BE USED IN CONJUNCTION WITH OTHER PERTINENT CLINICAL DIAGNOSTIC PROCEDURES. 93 Classification: Borderline High . 94 CALCULATED LDL APPROXIMATES THE VALUE OF A DIRECT LDL MEASUREMENT. Classification: High . 95 Anion gap measurement may be of limited value in the presence of any alkalosis, especially in a combined acid base disorder. . 96 Cholesterol Risk Levels (NIH) Recommended: under 200 mg/dl Borderline : 200-239 mg/dl High Risk : Above 240 mg/dl . 97 LDL Cholesterol Risk Levels (NIH) Recommended: under 130 mg/dl Borderline: 131 - 159 mg/dl High Risk: above 160 mg/dl . 98 LDL/HDL Risk Ratio Levels MALE FEMALE 1/2 X Average 1.00 1.47 Average 3.55 3.22 2 X Average 6.25 5.03 3 X Average 7.99 6.14 . 99 CHOL/HDL Risk Ratio Levels MALE FEMALE 1/2 X Average 3.4 3.3 Average 5.0 4.4 2 X Average 9.5 7.0 3 X Average 24.0 11.0 . 100 Females: ovulating 63-120 on oral contraceptives 54-71 Post menopausal 49-113 Males: 20-49 years 270-1734 50 years and older 212-755 . 101 Effective November Please Note CHANGE IN REFERENCE RANGE. . Effective November Please Note CHANGE IN REFERENCE RANGE. . Effective November Please Note CHANGE IN REFERENCE RANGE. . 102 . RESULTS OBTAINED USING [employer] METHODOLOGY. SERUM PSA RESULTS SHOULD BE USED ONLY IN CONJUNCTION WITH INFORMATION AVAILABLE FROM THE CLINICAL EVALUATION OF THE PATIENT AND OTHER DIAGNOSTIC PROCEDURES. . RESULTS OBTAINED USING [employer] METHOD[employer]. SERUM PSA RESULTS SHOULD BE USED ONLY IN CONJUNCTION WITH INFORMATION AVAILABLE FROM THE CLINICAL EVALUATION OF THE PATIENT AND OTHER DIAGNOSTIC PROCEDURES. 103 Deficient (Low): <145 pg/ml Indeterminate: 145-180 pg/ml Normal: 181-914 pg/ml . Procedures Date CPT Code Description Status Comment 01/27/2017 Colonoscopy Completed 3 polyps, 2 sessile serrated adenomatous polyps, one hyperplastic polyp. Repeat not recommended. (February of 2006, . Negative.) 04/27/2015 89330 EKG, at Least 12 Leads Completed w/Interpretation and Report 01/18/2012 67601 EKG, at Least 12 Leads Completed w/Interpretation and Report 01/18/2012 49100 Foreign body removal, Completed External auditory canal 04/13/2010 60822 EKG, at Least 12 Leads Completed w/Interpretation and Report 07/01/2008 65541 EKG, at Least 12 Leads Completed w/Interpretation and Report 12/22/2005 40434 EKG, at Least 12 Leads Completed w/Interpretation and Report Encounters Type Date Location Provider CPT E/M Dx Office Visit 03/12/2018 3:30p Main Office Miguel Angel Sauceda M.D. 98244 F41.9 Office Visit 08/29/2017 11:30a Main Office Miguel Angel Sauceda M.D. 40330 Z71.1 Office Visit 05/21/2017 11:00a Main Office Armando Zacarias [facility] 25677 S80.861A Z23 Office Visit 11/08/2016 3:45p [place] [address] R19.5 Office Visit 10/05/2016 11:30a Main Office Miguel Angel Sauceda M.D. 89661 R23.8 L91.8 Office Visit 08/29/2016 3:45p Main Office Miguel Angel Sauceda M.D. 11613 Z12.11 Office Visit 05/10/2016 2:15p Main Office Miguel Angel Sauceda M.D. G0439 Z00.00 I10 G47.33 E55.9 E53.9 Z12.5 Z23 Office Visit 04/01/2016 9:45a Main Office Miguel Angel Sauceda M.D. 87421 M79.642 Office Visit 02/17/2016 10:30a Main Office Miguel Angel Sauceda M.D. 48453 M79.1 G47.33 Office Visit 02/02/2016 12:45p Main Office Yanna Cabrera M.D., Shivam.Dalila 31810 R50.9 M79.1 Office Visit 01/29/2016 10:30a Main Office Yanna Cabrera M.D., Faith 22365 R50.9 Office Visit 10/13/2015 11:00a Main Office Miguel Angel Sauceda M.D. 60499 R42 I10 G47.9 Office Visit 09/29/2015 11:30a Main Office Miguel Angel Sauceda M.D. 80440 R42 R06.02 Office Visit 08/10/2015 11:45a Main Office Miguel Angel Sauceda M.D. 78274 I47.2 M25.561 Z14.8 Office Visit 07/20/2015 3:45p Main Office Miguel Angel Sauceda M.D. 17912 R07.9 E78.0 Office Visit 07/01/2015 2:45p Main Office Miguel Angel Sauceda M.D. 00325 M79.604 Office Visit 06/01/2015 11:00a Main Office Miguel Angel Sauceda M.D. 05044 M25.569 R53.83 J06.9 Office Visit 05/06/2015 2:15p Main Office Miguel Angel Sauceda M.D. G0439 Z00.00 I10 E55.9 M25.569 Z23 Office Visit 04/27/2015 11:30a Main Office Miguel Angel Sauceda M.D. 24445 Z01.818 H26.9 M25.50 401.9 268.9 266.9 I10 Z12.5 V04.81 Office Visit 04/30/2014 8:45a Main Office Miguel Angel Sauceda M.D. G0439 V70.0 401.9 268.9 427.1 724.09 V04.81 Office Visit 10/29/2013 9:30a Main Office Miguel Angel Sauceda M.D. 46293 427.1 401.9 724.09 Office Visit 07/31/2013 2:15p Main Office Migule Angel Sauceda M.D. 83639 401.9 Office Visit 04/30/2013 11:30a Main Office Miguel Angel Sauceda M.D. 31275 401.9 780.93 Office Visit 02/05/2013 2:15p Main Office Miguel Angel Sauceda M.D. G0438 V70.0 724.09 401.9 272.0 V76.44 266.9 268.9 V06.1 V05.8 780.4 Office Visit 04/30/2012 3:15p Main Office Miguel Angel Sauceda M.D. 10270 724.09 V04.81 Office Visit 01/18/2012 4:45p Main Office Miguel Angel Sauceda M.D. 25361 786.50 931 Office Visit 10/06/2011 12:15p Main Office Miguel Angel Sauceda M.D. 49282 461.9 Office Visit 07/10/2011 11:15a Main Office Nancy Verdin [employer] 36923 053.29 Office Visit 06/08/2010 10:00a [place] [address] 461.9 372.00 Office Visit 04/13/2010 8:45a Main Office Miguel Angel Sauceda M.D. 92855 V70.0 401.9 272.0 354.0 724.09 V04.81 Office Visit 10/08/2009 10:45a Main Office Miguel Angel Sauceda M.D. 31936 401.9 780.50 724.2 733.12 Office Visit 06/09/2009 11:45a Main Office Miguel Angel Sauceda M.D. 56523 733.12 724.2 Office Visit 04/01/2009 10:15a Main Office Miguel Angel Sauceda M.D. 71519 401.9 272.0 729.82 V04.81 Office Visit 02/16/2009 8:00a Main Office [facility] 31984 401.9 366.9 281.0 V72.84 Office Visit 12/30/2008 9:30a Main Office Miguel Angel Sauceda M.D. 19144 401.9 272.0 472.0 266.9 Office Visit 07/01/2008 8:45a Main Office Miguel Angel Sauceda M.D. 41353 V70.0 401.9 272.0 472.0 266.9 729.82 V03.82 V04.81 Office Visit 12/31/2007 9:45a Main Office Miguel Angel Sauceda M.D. 11824 401.9 472.0 266.9 V76.9 Office Visit 09/04/2006 10:30a Main Office Miguel Angel Sauceda M.D. 62146 401.9 272.0 472.0 302.72 Office Visit 06/26/2006 9:30a Main Office Miguel Angel Sauceda M.D. 14317 401.9 266.9 272.0 Office Visit 12/22/2005 9:00a Main Office Miguel Angel Sauceda M.D. 99299 V70.0 401.9 266.9 V76.9 729.5 V06.5 Office Visit 12/06/2005 3:30p Main Office Miguel Angel Sauceda M.D. 34265 692.9 Office Visit 08/24/2004 8:45a Main Office Nancy Solano M.D. 21095 401.9 266.9 V04.81 272.0 Office Visit 10/28/2003 8:00a Main Office Nancy Solano M.D. 43489 V70.0 V76.9 401.9 266.9 724.09 Office Visit 07/29/2003 10:30a Main Office Nancy Solano M.D. 34561 401.9 311 690.18 Office Visit 07/01/2003 11:15a Main Office Nancy Solano M.D. 37357 311 401.9 266.9 V04.8 Office Visit 03/12/2003 4:45p Main Office Miguel Angel Sauceda M.D. 15313 959.9 Office Visit 10/06/2002 9:30a Main Office Nancy Solano M.D. 23055 311 401.9 Office Visit 08/04/2002 9:30a Main Office Nancy Solano M.D. 90555 311 Office Visit 07/02/2002 9:30a Main Office Nancy Solano M.D. 15769 311 Office Visit 06/02/2002 9:30a Main Office Nancy Solano M.D. 32123 311 V04.8 Office Visit 04/29/2002 8:45a Nancy Solano M.D. 11948 V70.0 401.9 266.9 311 Office Visit 01/22/2002 10:00a Main Office Nancy Solano M.D. 32359 401.9 709.00 Plan of Care Future Appointment(s):04/17/2018 11:00 am - Miguel Angel Sauceda M.D. at Main [id number] - Miguel Angel Sauceda M.D.F41.9 Anxiety disorder, unspecifiedNew Medication: Venlafaxine HCL ER 75 mgPropranolol HCL 10 mgComments:Tolerating start of Effexor.We will try propranolol to use when necessary for severe anxiety.I'm notoptimistic that he would tolerate a benzodiazepine well.Increase Effexor.Continue regular counselingwith Shanell Dozier up:3 weeks.Recommendations:Let's increase venlafaxine to 75mg a day today. In one week (if there are no side effects) increase to 150mg every morning.
--- NOTE | 2018-04-14 15:12 | ED ---
Neurological HPI - HPI Summary HPI Summary: This patient is a 77 year old M presenting to ED with a chief complaint of possible TIA 5 days ago. He was working on drawings during onset and then become confused. Then he walked down the toney and spoke to his , at which point, the confusion went away after 0.5 hours. The reports she did not notice any differences. He also reports that this morning, he was missing a lot of memories since Sunday. He also doesnt remember going to the store 2 nights ago and says that he only gets flashes of memory of that event. reports that the patient has been sleeping and staying in bed more than usual. The patient rates the pain 0/10 in severity. Symptoms aggravated by nothing. Symptoms alleviated by spontaneous resolution. Patient denies fatigue. The patient takes 2 ASA per day. PMHx of TIA and anxiety. - History of Current Complaint Chief Complaint: EDNeurologicalDeficit Stated Complaint: POSSIBLE STROKE ON SUN Time Seen by Provider: 04/14/18 15:05 Hx Obtained From: Patient, Family/Slot Floor Attendant - Onset/Duration: Sudden Onset, Started days ago - 5 days ago, Resolved Timing: Sudden Onset - 0.5 hours ago Current Severity: None Pain Intensity: 0 Pain Scale Used: 0-10 Numeric Character: Confusion, Other: - loss of memory Aggravating: Nothing Alleviating: Spontanious Resolution Associated Signs and Symptoms: Positive: Memory Loss, Nothing - confusion; denies fatigue but has been sleeping more than usual - Allergy/Home Medications Allergies/Adverse Reactions: Allergies Allergy/AdvReac Type Severity Reaction Status Date / Time seasonal Allergy Eyes Uncoded 04/14/18 15:24 Itchy/Swollen/Red/Watery Home Medications: Home Medications Propranolol HCl 10 - 20 mg PO TID PRN 04/14/18 [History Confirmed 04/14/18] Venlafaxine HCl [Venlafaxine HCl ER] 37.5 mg PO DAILY 04/14/18 [History Confirmed 04/14/18] PMH/Surg Hx/FS Hx/Imm Hx Endocrine/Hematology History: Denies: Hx Diabetes Cardiovascular History: Reports: Hx Hypertension - ON MEDICATION FOR, Other Cardiovascular Problems/Disorders - HISTORY OF VENTRICULAR TACHYCARDIA-SEE. DR. PEDRAZA FOR Denies: Hx Pacemaker/ICD Respiratory History: Reports: Hx Seasonal Allergies, Hx Sleep Apnea Denies: Other Respiratory Problems/Disorders GI History: Denies: Hx Gastroesophageal Reflux Disease, Other GI Disorders History: Denies: Hx Renal Disease Musculoskeletal History: Reports: Hx Arthritis, Other Musculoskeletal History - spinal stenosis, resolved with L4/L5 decompression Sensory History: Reports: Hx Cataracts, Hx Contacts or Glasses - GLASSES, Hx Hearing Aid - BILATERAL Opthamlomology History: Reports: Hx Cataracts, Hx Contacts or Glasses - GLASSES Neurological History: Reports: Hx Migraine, Hx Transient Ischemic Attacks (TIA) Denies: Other Neuro Impairments/Disorders Psychiatric History: Reports: Hx Anxiety, Hx Depression - 15 YEARS AGO Denies: Hx Panic Disorder - Surgical History Surgery Procedure, Year, and Place: CYST REMOVAL. HEART CATHERIZATION NO STENTING X 2. L4/L5 DECOMPRESSION X 2 SURGERIES Hx Anesthesia Reactions: No Infectious Disease History: No Infectious Disease History: Denies: Traveled Outside the [place] in Last 30 Days - Family History Known Family History: Positive: Other Family History: father - valve problem. mother - glaucoma - Social History Alcohol Use: Rare Alcohol Amount: 1 Q 2 MONTHS Substance Use Type: Reports: None Smoking Status (MU): Never Smoked Tobacco Have You Smoked in the Last Year: No Review of Systems Negative: Fever Neurological: Other - possible TIA, confusion, slight memory loss; denies fatigue although he is sleeping more than usual All Other Systems Reviewed And Are Negative: Yes Physical Exam - Summary Physical Exam Summary: Appearance: The patient is well-nourished in no acute distress and in no acute pain. Skin: The skin is warm and dry and skin color reflects adequate perfusion. HEENT: The head is normocephalic and atraumatic. The pupils are equal and reactive. The conjunctivae are clear and without drainage. Nares are patent and without drainage. Mouth reveals moist mucous membranes and the throat is without erythema and exudate. The external ears are intact. The ear canals are patent and without drainage. The tympanic membranes are intact. Neck: The neck is supple with full range of motion and non-tender. There are no carotid bruits. There is no neck vein distension. Respiratory: Chest is non-tender. Lungs are clear to auscultation and breath sounds are symmetrical and equal. Cardiovascular: Heart is regular rate and rhythm. There is no murmur or rub auscultated. There is no peripheral edema and pulses are symmetrical and equal. Abdomen: The abdomen is soft and non-tender. There are normal bowel sounds heard in all four quadrants and there is no organomegaly palpated. Musculoskeletal: There is no back tenderness noted. Extremities are non-tender with full range of motion. There is good capillary refill. There is no peripheral edema or calf tenderness elicited. Neurological: Patient is alert and oriented to person, place and time. The patient has symmetrical motor strength in all four extremities. Cranial nerves are grossly intact. Deep tendon reflexes are symmetrical and equal in all four extremities. Psychiatric: The patient has an appropriate affect and does not exhibit any anxiety or depression. GCS: 15 Triage Information Reviewed: Yes Vital Signs On Initial Exam: Initial Vitals Temp Pulse Resp BP Pulse Ox 96.5 F 93 16 125/94 93 04/14/18 14:40 04/14/18 14:40 04/14/18 14:40 04/14/18 14:40 04/14/18 14:40 Vital Signs Reviewed: Yes Diagnostics - Vital Signs Vital Signs Temp Pulse Resp BP Pulse Ox 04/14/18 14:40 96.5 F 93 16 125/94 93 - Laboratory Result Diagrams: 04/14/18 15:36 04/14/18 15:36 Lab Statement: Any lab studies that have been ordered have been reviewed, and results considered in the medical decision making process. - CT CT Brain CT Interpretation Completed By: Radiologist - CT findings are compatible with chronic microvascular disease and involutional changes similar to the September 17, 2017 MRI the brain. ED physician has reviewed this radiology report. - EKG 1548 Cardiac Rate: NL - 96 BPM EKG Rhythm: Sinus Rhythm EKG Interpretation: RBBB EKG Comparison: No Significant Change - unchanged from 07/18/17 Re-Evaluation - Re-Evaluation First Eval Re-Evaluation Time: 17:15 Comment: Discussed consult with Dr. Ortiz (neuro). Course/Dx - Course Course Of Treatment: Mr. Zarco presented to the emergency department complaining that he had an episode of confusion that lasted about 20 minutes last Sunday. Today when speaking to his he realized that he has been forgetting things this week including a shopping trip he took with his on Sunday evening. He is worried about TIA. His workup here was unremarkable including CT scan. I spoke with Dr. Ortiz who revealed that the patient has been working with Dr. Manning for quite some time with memory issue problems. The patient is a nondrinker. I recommended discharge and follow-up with Dr. Manning - Differential Dx Differential Diagnoses Neuro: Positive: Other - mild cognitive impairment - Diagnoses Provider Diagnoses: Mild cognitive impairment - Physician Notifications Discussed Care Of Patient With: Wan Ortiz Time Discussed With Above Provider: 16:59 Instructed by Provider To: Other - Consulted Dr. Ortiz who says to tell him to keep his appointment with Dr. Manning on 05/01/18. Discharge - Sign-Out/Discharge Documenting (check all that apply): Patient Departure - Discharge Plan Condition: Stable Disposition: HOME Patient Education Materials: Mild Cognitive Impairment: New Diagnosis (DC) Referrals: Yoni Manning MD [Medical Doctor] - (Keep your appointment with Dr. Manning on 05/01/18.) Additional Instructions: Keep your appointment with Dr. Manning on 05/01/18. RETURN TO THE ED FOR ANY NEW OR WORSENING SYMPTOMS. - Billing Disposition and Condition Condition: STABLE Disposition: Home - Attestation Statements Document Initiated by Haliibe: Yes Documenting Scribe: Duc Muniz Provider For Whom Ingrid is Documenting (Include Credential): Josh Cox MD Scribe Attestation: I, Duc Muniz, scribed for Josh Cox MD on 04/14/18 at 5275. Scribe Documentation Reviewed: Yes Provider Attestation: The documentation as recorded by the Duc finch accurately reflects the service I personally performed and the decisions made by me, Josh Cox MD
[2018-04-14 15:42] LABS: ABS Basophils 0 10^3/ul (0-0.2); ABS Eosinophils 0 10^3/ul (0-0.6); ABS Lymphocytes 1.1 10^3/ul (1.0-4.8); ABS Monocytes 0.7 10^3/ul (0-0.8); ABS Neutrophils 5.2 10^3/ul (1.5-7.7); ABS Nucleated RBC 0 10^3/ul; Eosinophil % 0.1 % (0-6); Hematocrit 47 % (42-52); Hemoglobin 16.1 g/dl (14.0-18.0); Lymphocyte % 15.9 % (25-47); Mean Corpuscular HGB Conc 34 g/dl (31-36); Mean Corpuscular Hemoglobin 32 pg (27-31); Mean Corpuscular Volume 95 fL (80-94); Mean Platelet Volume 7.9 um3 (7.4-10.4); Nucleated Red Blood Cells % 0; Platelet Count 209 10^3/ul (150-450); Red Blood Count 4.98 10^6/ul (4.00-5.40); Red Cell Distribution Width 14 % (10.5-15)
[2018-04-14 15:49] LABS: INR 0.96 (0.77-1.02)
[2018-04-14 16:03] LABS: EGFR Non-African American 68.5 (>60)
--- NOTE | 2018-04-14 16:26 | RAD ---
INDICATION: Altered mental status COMPARISON: MRI of the brain dated September 17, 2017 TECHNIQUE: Contiguous axial sections of the brain were obtained from the skull base to the vertex without contrast. FINDINGS: The ventricles, cisterns and sulci symmetrical involutional changes.. There is moderate periventricular and subcortical white matter hypoattenuation, and apparently correlates to the prior MRI of the brain, most likely representing chronic microvascular disease. Otherwise the martin-white matter differentiation is adequately maintained and there is no sulcal effacement. No significant focal abnormality or mass effect is present. There is no evidence for intracranial hemorrhage. No significant focal osseous abnormality is present. The visualized portion of the paranasal sinuses appear clear. The mastoid air cells are well aerated bilaterally. IMPRESSION: CT findings are compatible with chronic microvascular disease and involutional changes similar to the September 17, 2017 MRI the brain.
[2018-04-14 17:29] VITALS: BP 120/78
== END 2018-04-14 17:29 | disposition home or self-care (01) ==
LOC: ED 14:38
DX: G31.84 Mild cognitive impairment of uncertain or unknown etiology (principal); I45.10 Unspecified right bundle-branch block; I10 Essential (primary) hypertension; F41.9 Anxiety disorder, unspecified; F32.9 Major depressive disorder, single episode, unspecified
CPT/HCPCS: 36415; 70450; 80053; 83605; 84443; 84484; 85025; 85610; 93005; 99282

== ENCOUNTER 2018-06-28 16:10 | Emergency (ER) | payer MEDICARE ==
--- OUTSIDE RECORDS SUMMARY | 2018-06-28 16:51 | XMS REPORT | Continuity of Care Document ---
:1940 External Reference #:[id number] Author Name Claudette Rob Care Team Providers Name Role Phone Miguel Angel Sauceda M.D. Primary Care Physician Unavailable Payers Type Date Identification Numbers Payment Provider Subscriber Policy Number: [id number] Medicare Solomon Zarco PayID: [id number] [address] [place] [address] Effective: 2005 Policy Number: [facility] Solomon Zarco [id number] Healthcare PayID: [id number] [address] [place] [address] Advance Directives Description No Information Available Problems Date Description Provider Status Onset: 09/11/2013 Paroxysmal ventricular tachycardia Roosevelt White M.D. Active Onset: 09/11/2013 Essential hypertension Roosevelt White M.D. 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 Hand Dominance Right-handed Tobacco Use Start: Unknown Never Smoked Cigarettes Smoking Status Reviewed: 06/21/18 Never Smoked Cigarettes ETOH Use Rarely consumes once a month, glass alcohol of wine Tobacco Use Start: Unknown Patient has never smoked Recreational Drug Use Denies Drug Use Exercise Type/Frequency Exercises rarely Allergies, Adverse Reactions, Alerts Date Description Reaction Status Severity Comments 09/11/2013 NKDA Active 09/11/2013 Environmental Active pollen, dust, mold 11/28/2013 Milk-related Compounds Active Medications Medication Date Status Form Strength Qnty SIG Indications Ordering Provider Donepezil HCL 06/21 Active Tablets 5mg 30tab 1 every G31.84 day Lesvia Manning Rosuvastatin Calcium 05/01 Active Tablets 10mg 1 po qd Lesvia Manning Lisinopril 11/28 Active Tablets 10mg 1 by Roosevelt lore White, every day M.DMichael Hydrochlorothiazide Active Tablets 25mg 90tab 1 po qd Unknown /0000 s Am Aspirin Ec Active Tablets 81mg 100ta 2 po qd Unknown / DR bs Cpap Active Device Unknown / Loratadine Active Tablets 10mg 1 by Unknown /0000 mouth every day Venlafaxine HCL Active Tablets 37.5mg 1 by Unknown /0000 mouth daily Propranolol HCL Active Tablets 10mg Take 1 To Unknown /0000 2 Tablets By Mouth Three Times A Day as Needed For Anxiety Sertraline HCL Active Tablets 100mg Take 1 Unknown /0000 Tablet By Mouth Every Day as Directed Oxycodone-Acetaminop 04/13 Hx Tablets 5-325mg 42tab one tab s by mouth Yareli, - every 4 M.D. 06/13 hours needed for pain Melatonin 12/04 Hx Capsules 3mg 1 by mouth - every 05/28 night at bedtime as needed Atorvastatin Calcium 07/22 Hx Tablets 20mg 90tab take 1 I25.10 Roosevelt s tablet at Dalila White, - bedtime M.D. 12/04 Atenolol 09/11 Hx Tablets 25mg 45tab 1/2 tab I25.10 Roosevelt s by mouth Dalila White, - twice a M.D. Lisinopril 02/19 Hx Tablets 20mg 90tab 1 by Roosevelt s mouth DMichael Brand, - every day M.D. 10/29 Metoprolol Succinate 07/16 Hx Tablets 25mg 60tab 1 by Roosevelt /2011 ER 24HR s mouth Dalila Brand, - twice a M.D. Multivitamins 00/00 Hx Tablets 1 tab po Unknown /0000 qd - 09/20 Claritin OTC Extened Hx Tablets 10mg 30tab 1 po Unknown Release /0000 s daily as - needed 04/26 Benadryl 00 Hx Tablets 25mg 30tab 1 tab po Unknown /0000 s as needed - 06/02 Vitamin D Hx Tablets 1000Unit 1 tab by Unknown /0000 mouth - everyday 04/26 Vitamin B-12 Hx Tablets 1000mcg 1 by Unknown /0000 mouth - every day 04/[address] 20mg 1 by Unknown /0000 Part mouth - every day 09/18 Medications Administered in Office Medication Date Status Form Strength Qnty SIG Indications Ordering Provider Technetium TC Administered Injection Roosevelt Conner 99M 016 Lesvia White Tetrofosmin, Per Unit Dose Up To 40 Millicuries Immunizations Description No Information Available Vital Signs Date Vital Result Comment 06/21/2018 9:01am Height 67 inches 5'7" Weight 244.00 lb Heart Rate 92 /min BP Systolic 118 mmHg BP Diastolic 80 mmHg Respiratory Rate 18 /min Body Temperature 98.7 F Pain Level 0 O2 % BldC Oximetry 96 % BMI (Body Mass Index) 38.2 kg/m2 05/29/2018 11:08am Height 67 inches 5'7" Weight 250.00 lb with shoes Heart Rate 95 /min BP Systolic Sitting 110 mmHg Lue lg cuff BP Diastolic Sitting 72 mmHg Lue lg cuff BP Systolic Standing 108 mmHg Lue lg cuff BP Diastolic Standing 72 mmHg Lue lg cuff Respiratory Rate 18 /min BMI (Body Mass Index) 39.2 kg/m2 05/01/2018 2:29pm Height 67 inches 5'7" Weight 250.00 lb Heart Rate 62 /min BP Systolic Sitting 118 mmHg BP Diastolic Sitting 70 mmHg Respiratory Rate 16 /min BMI (Body Mass Index) 39.2 kg/m2 04/19/2018 11:49am Height 67 inches 5'7" Weight 281.00 lb with shoes Heart Rate 68 /min BP Systolic Sitting 110 mmHg lue lg cuff BP Diastolic Sitting 64 mmHg lue lg cuff BP Systolic Standing 110 mmHg BP Diastolic Standing 64 mmHg BMI (Body Mass Index) 44.0 kg/m2 Ejection Fraction 55-60% 09/16/15 Echo 10/24/2017 10:35am Height 67 inches 5'7" Weight 250.00 lb Heart Rate 88 /min BP Systolic Sitting 124 mmHg BP Diastolic Sitting 66 mmHg Respiratory Rate 16 /min BMI (Body Mass Index) 39.2 kg/m2 09/19/2017 8:22am Height 67.5 inches 5'7.50" Weight 260.50 lb no shoes Heart Rate 60 /min BP Systolic Sitting 114 mmHg Lue large cuff BP Diastolic Sitting 74 mmHg Lue large cuff BP Systolic Standing 112 mmHg Lue BP Diastolic Standing 72 mmHg Lue Respiratory Rate 16 /min BMI (Body Mass Index) 40.2 kg/m2 Ejection Fraction 55-60% 09/16/15 echo 04/27/2017 8:48am Height 67.5 inches 5'7.50" Weight 256.00 lb with shoes Heart Rate 64 /min BP Systolic Sitting 128 mmHg Rue large cuff BP Diastolic Sitting 78 mmHg Rue large cuff BP Systolic Standing 130 mmHg Rue large cuff BP Diastolic Standing 78 mmHg Rue large cuff Respiratory Rate 16 /min BMI (Body Mass Index) 39.5 kg/m2 Ejection Fraction 55-60% echo 201509/05/2016 1:24pm Height 67.5 inches 5'7.50" Weight 240.00 lb Heart Rate 66 /min BP Systolic Sitting 134 mmHg BP Diastolic Sitting 77 mmHg Respiratory Rate 14 /min O2 % BldC Oximetry 95 % BMI (Body Mass Index) 37.0 kg/m2 06/14/2016 3:01pm Height 68 inches 5'8" Weight 240.00 lb Pain Level 0 BMI (Body Mass Index) 36.5 kg/m2 05/17/2016 2:35pm Heart Rate 67 /min BP Systolic 127 mmHg BP Diastolic 67 mmHg Pain Level 1 04/24/2016 10:33am Heart Rate 55 /min BP Systolic 123 mmHg BP Diastolic 73 mmHg Pain Level 2 04/11/2016 12:57pm Height 67 inches 5'7" Weight 245.00 lb w/ shoes Heart Rate 72 /min reg BP Systolic Sitting 140 mmHg Rue, reg cuff BP Diastolic Sitting 76 mmHg Rue, reg cuff BP Systolic Standing 134 mmHg Rue BP Diastolic Standing 70 mmHg Rue Respiratory Rate 16 /min BMI (Body Mass Index) 38.4 kg/m2 Ejection Fraction 55-60% as of 09/16/15 echo 04/11/2016 8:03am Height 67 inches 5'7" Weight 235.00 lb BP Systolic 115 mmHg BP Diastolic 70 mmHg Pain Level 3 BMI (Body Mass Index) 36.8 kg/m2 02/29/2016 2:45pm Height 68 inches 5'8" Weight 235.00 lb Heart Rate 68 /min BP Systolic 120 mmHg BP Diastolic 74 mmHg Respiratory Rate 14 /min O2 % BldC Oximetry 94 % BMI (Body Mass Index) 35.7 kg/m2 01/18/2016 2:22pm Height 68 inches 5'8" Weight 235.00 lb Heart Rate 61 /min BP Systolic Sitting 126 mmHg BP Diastolic Sitting 78 mmHg Respiratory Rate 16 /min O2 % BldC Oximetry 97 % BMI (Body Mass Index) 35.7 kg/m2 12/23/2015 9:51am Height 67 inches 5'7" Weight 238.00 lb w/ shoes Heart Rate 58 /min reg BP Systolic Sitting 122 mmHg Rue, lg cuff BP Diastolic Sitting 80 mmHg Rue, lg cuff BP Systolic Standing 116 mmHg Rue BP Diastolic Standing 76 mmHg Rue Respiratory Rate 16 /min BMI (Body Mass Index) 37.3 kg/m2 Ejection Fraction 55-60% as of 09/16/15 echo 12/06/2015 2:36pm Height 67 inches 5'7" Weight 238.00 lb Heart Rate 70 /min BP Systolic 118 mmHg BP Diastolic 78 mmHg Respiratory Rate 14 /min O2 % BldC Oximetry 96 % BMI (Body Mass Index) 37.3 kg/m2 Neck Circumference in inches 17 09/21/2015 1:06pm Height 67 inches 5'7" Weight 239.00 lb with shoes Heart Rate 64 /min BP Systolic Sitting 112 mmHg left arm, reg cuff BP Diastolic Sitting 72 mmHg left arm, reg cuff BP Systolic Standing 98 mmHg left arm, reg cuff BP Diastolic Standing 64 mmHg left arm, reg cuff Respiratory Rate 16 /min BMI (Body Mass Index) 37.4 kg/m2 Ejection Fraction 55-60% 09/16/15 09/03/2015 10:28am Height 67 inches 5'7" Weight 237.31 lb with shoes Heart Rate 56 /min BP Systolic Sitting 114 mmHg Ra Lg cuff BP Diastolic Sitting 68 mmHg Ra Lg cuff BP Systolic Standing 114 mmHg Ra Lg Cuff BP Diastolic Standing 64 mmHg Ra Lg Cuff Respiratory Rate 16 /min BMI (Body Mass Index) 37.2 kg/m2 Ejection Fraction 68% 08/05/15 07/22/2015 9:43am Height 67 inches 5'7" Weight 239.00 lb with shoes Heart Rate 60 /min BP Systolic Sitting 124 mmHg Ra lg cuff BP Diastolic Sitting 70 mmHg Ra lg cuff BP Systolic Standing 14 mmHg Ra lg cuff BP Diastolic Standing 62 mmHg Ra lg cuff Respiratory Rate 16 /min BMI (Body Mass Index) 37.4 kg/m2 06/11/2015 2:30pm Height 67 inches 5'7" Weight 234.00 lb Heart Rate 64 /min BP Systolic Sitting 136 mmHg Ra large cuff BP Diastolic Sitting 78 mmHg Ra large cuff BP Systolic Standing 122 mmHg Ra BP Diastolic Standing 72 mmHg Ra Respiratory Rate 14 /min BMI (Body Mass Index) 36.6 kg/m2 06/10/2014 9:07am Height 67 inches 5'7" Weight 232.00 lb with out shoes Heart Rate 60 /min BP Systolic Sitting 122 mmHg LA reg cuff BP Diastolic Sitting 80 mmHg LA reg cuff BP Systolic Standing 110 mmHg La reg cuff BP Diastolic Standing 80 mmHg La reg cuff Respiratory Rate 16 /min BMI (Body Mass Index) 36.3 kg/m2 11/28/2013 9:34am Height 67 inches 5'7" Weight 232.00 lb with shoes off Heart Rate 76 /min BP Systolic Sitting 118 mmHg Reg cuff L arm BP Diastolic Sitting 70 mmHg Reg cuff L arm BP Systolic Standing 130 mmHg BP Diastolic Standing 70 mmHg Respiratory Rate 18 /min BMI (Body Mass Index) 36.3 kg/m2 09/11/2013 11:09am Height 67 inches 5'7" Weight 230.31 lb without shoes Heart Rate 8882 /min sit and stand HR reg BP Systolic Sitting 128 mmHg Ra lg cuff BP Diastolic Sitting 90 mmHg Ra lg cuff BP Systolic Standing 122 mmHg Ra lg cuff BP Diastolic Standing 90 mmHg Ra lg cuff Respiratory Rate 17 /min BMI (Body Mass Index) 36.1 kg/m2 Results Test Date Facility Test Result H/L Range Note Laboratory test 05/24/2018 [facility] Vitamin B12 486 pg/mL N 180-914 [address] [place] [address] [phone] TSH (Thyroid Stim Horm) 1.78 mcIU/mL N 0.34-5.60 Homocysteine 12 mcmol/L 2 Methylmalonic Acid Mma 0.26 nmol/mL <=0.40 3 Pre Cath 09/03/2015 [facility] Partial 33.8 seconds N 26.0- 36.[address] [place] [address] PTT [phone] CBC Auto 09/03/2015 [facility] White Blood 6.0 10^3/uL N 3.5- 10.[address] [place] [address] [phone] Red Blood Count 4.44 10^6/uL N 4.0-5.4 Hemoglobin 14.3 g/dL N 14.0-18.0 Hematocrit 44 % N 42-52 Mean Corpuscular Volume 99 fL High 80-94 Mean Corpuscular Hemoglobin 32 pg High 27-31 Mean Corpuscular HGB Conc 33 g/dL N 31-36 Red Cell Distribution Width 14 % N 10.5-15 Platelet Count 184 10^3/uL N 150-450 Mean Platelet Volume 9 um3 N 7.4-10.4 Abs Neutrophils 4.3 10^3/uL N 1.5-7.7 Abs Lymphocytes 0.9 10^3/uL Low 1.0-4.8 Abs Monocytes 0.6 10^3/uL N 0-0.8 Abs Eosinophils 0.2 10^3/uL N 0-0.6 Abs Basophils 0 10^3/uL N 0-0.2 Abs Nucleated RBC 0 10^3/uL N Granulocyte % 71.2 % N 38-83 Lymphocyte % 15.8 % Low 25-47 Monocyte % 9.8 % High 1-9 Eosinophil % 2.6 % N 0-6 Basophil % 0.6 % N 0-2 Nucleated Red Blood Cells % 0 N Basic Metabolic Panel 09/03/2015 [facility] Sodium 137 mmol/L N 133-[address] [place] [address] [phone] Potassium 4.3 mmol/L N 3.5-5.0 Chloride 105 mmol/L N 101-111 Co2 Carbon Dioxide 26 mmol/L N 22-32 Anion Gap 6 mmol/L N 2-11 Glucose 100 mg/dL N 70-100 Blood Urea Nitrogen 21 mg/dL N 6-24 Creatinine 1.04 mg/dL N 0.67-1.17 BUN/Creatinine Ratio 20.2 High 8-20 Calcium 9.2 mg/dL N 8.6-10.3 Egfr Non- 69.6 N >60 Egfr 89.5 N >60 4 Inr/Protime 09/03/2015 [facility] Inr 1.04 N 0.89-1.11 [address] [place] [address] [phone] Laboratory test 07/15/2012 [facility] Troponin I 0 ng/mL 0- 0.06 5 finding [address] [place] [address] [phone] 1 Normal Range 180 to 914 Indeterminate Range 145 to 180 Deficient Range <145 2 REFERENCE VALUE <=13 (Fasting) ADDITIONAL INFORMATION This test was developed and its performance characteristics determined by [facility] in a manner consistent with CLIA requirements. This test has not been cleared or approved by the U.S. Food and Drug Administration. Test Performed by: [facility] - [address] [address] ADDITIONAL INFORMATION This test was developed and its performance characteristics determined by [facility] in a manner consistent with CLIA requirements. This test has not been cleared or approved by the U.S. Food and Drug Administration. Test Performed by: [address] [address] 4 Because ethnic data is not always readily [...] 15-29 5 Kidney failure <15 (or dialysis) 5 Reference Range and Interpretation: TnI (ng/ml) Interpretation Less Than 0.06 ng/mL Not supportive of diagnosis of AL 0.06 - 0.50 ng/ml Indeterminate: suggest serial studies if clinically indicated. Greater than 0.5 ng/mL Consistent with diagnosis of AL Procedures Date Code Description Status 04/19/2018 01060 EKG Tracing & Interpretation Completed 10/15/2017 68126 Treadmill Interp/Report Only Completed 10/15/2017 56652 Stress Test Supervsn W/Out I/R Completed 04/27/2017 51345 EKG Tracing & Interpretation Completed 04/24/2016 46996 Short Arm Cast Application Completed 04/13/2016 89692 open tx carpometacarpal disloc other than thumb,incl Completed fixation 04/13/2016 91543 open tx carpometacarpal disloc other than thumb,incl Completed fixation 04/11/2016 56186 EKG Tracing & Interpretation Completed 12/18/2015 48904 Polysomnography Sleep Staging 4+ Parameters Completed 10/07/2015 59515 Holter Monitor Review (24 hr)dr review & interp only Completed 10/06/2015 47896 Spirometry Incl Graphic Record Completed 10/06/2015 35127 Plethysmography Determination Lung Volumes & Per Airway Completed Resist 09/16/2015 92042 ECHO Transthoracic, Real-Time 2D With Doppler And Color Completed Flow 09/13/2015 39165 Left Heart Cath. Incl S/I Coronaries, Angio S/I V Gram If Completed Done 08/05/2015 49300 Stress Test Completed 08/05/2015 02447 Myocardial Perfusion Imaging Tomographic (Spect) Multiple Completed Studies 07/22/2015 04414 EKG Tracing & Interpretation Completed 07/18/2015 98957 EKG, Interpretation Only Completed 06/11/2015 37597 EKG Tracing & Interpretation Completed 06/11/2014 01920 EKG, Interpretation Only Completed 11/28/2013 59953 EKG Tracing & Interpretation Completed 02/19/2013 65700 EKG Tracing & Interpretation Completed 07/16/2012 62576 EKG Tracing & Interpretation Completed Encounters Type Date Location Provider Dx Diagnosis Office Visit 05/29/2018 [facility] Roosevelt Conner I47.1 Supraventricular 11:30a Of Lexii White M.D. tachycardia I25.10 [facility] heart disease of [place] coronary artery w/o ang pctrs Office Visit 05/01/2018 Ana Marrero G31.84 Mild cognitive 2:30p Neurologic Lesvia Manning impairment, so stated Services Of [facility] Office Visit 04/19/2018 Arianna Conner I47.1 Supraventricular 11:30a Cardiology Skip White M.D. tachycardia [facility] R94.31 Abnormal electrocardiogram [ECG] [EKG] I45.10 Unspecified right bundle-branch block Office Visit 10/24/2017 10:45a [facility] Lacie Marrero G31.84 Mild cognitive Services Of Lexii Manning M.D. impairment, so stated I67.82 Cerebral ischemia Office Visit 09/19/2017 Arianna Conner R94.31 Abnormal 8:30a Cardiology Skip White M.D. electrocardiogram Lexii [ECG] [EKG] I25.10 [facility] heart disease of [place] coronary artery w/o ang pctrs I45.10 Unspecified right bundle-branch block R00.0 Tachycardia, unspecified Office Visit 04/27/2017 8:30a [facility] Roosevelt Conner I25.10 [facility] heart Of Lexii White M.D. 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 joint of left hand, init Office Visit 02/29/2016 Pulmonology And Brittani G47.33 Obstructive sleep 2:30p Sleep Services [facility] [place] apnea (adult) Of [facility] (pediatric) E66.09 Other obesity due to excess calories Office Visit 01/18/2016 2:30p Pulmonology And Brittani G47.33 Obstructive sleep Sleep Services Of [place] apnea (adult) [facility] (pediatric) E66.09 Other obesity due to excess calories Office Visit 12/23/2015 10:00a [facility] Roosevelt Conner R06.02 Shortness of Of Lexii White M.D. 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 disease of [place] coronary artery w/o ang pctrs Office Visit 07/22/2015 10:00a [facility] Roosevelt Conner R07.9 Chest pain, Of Lexii White M.D. unspecified I25.10 [facility]scl heart disease of [place] coronary artery w/o ang pctrs I45.10 Unspecified right bundle-branch block R94.31 Abnormal electrocardiogram [ECG] [EKG] Office Visit 07/18/2015 [facility] Jesi Samayoa, R07.9 Chest pain, 1:54p Assgrey camacho M.D. unspecified Hospitalists I10 Essential (primary) hypertension Office Visit 07/17/2015 [facility] Jesi Samayoa, R07.9 Chest pain, 1:54p grey Casillas M.D. unspecified Hospitalists I10 Essential (primary) hypertension Office Visit 06/11/2015 [place] [facility] R94.31 Abnormal 2:30p Cardiology Of Lesvia White electrocardiogram Lexii [ECG] [EKG] I47.2 Ventricular tachycardia I45.10 Unspecified right bundle-branch block Office Visit 06/10/2014 9:00a [facility] Roosevelt Conner 427.1 Paroxysmal Of Lexii White M.D. Ventricular Tachycardia 401.9 Hypertension Unspec Office Visit 11/28/2013 9:15a [facility] Roosevelt Conner 427.1 Paroxysmal Of Lexii White M.D. Ventricular Tachycardia 401.9 Hypertension Unspec Office Visit 09/11/2013 11:15a [facility] Roosevelt Conner 427.1 Paroxysmal Of Lexii White M.D. Ventricular Tachycardia 401.9 Hypertension Unspec Office Visit 02/19/2013 11:15a [facility] Roosevelt Conner 427.1 Paroxysmal Of Lexii White M.D. Ventricular Tachycardia 414.9 Ischemic Heart Disease Chronic Unspec 401.9 Hypertension Unspec Office Visit 08/21/2012 11:15a [facility] Roosevelt Conner 427.1 Paroxysmal Of Lexii White M.D. 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 Lumbar Region, W/O Neurogenic Claudication Plan of Treatment Future Appointment(s):12/20/2018 9:00 am - Yoni Manning M.D. at [facility] [id number]/21/2018 - Yoni Manning M.D.G31.84 Mild cognitive impairment, so statedNew Medication:Donepezil HCL 5 mg - 1 every dayFollow up:6 months
--- NOTE | 2018-06-28 21:18 | ED ---
Head Injury - HPI Summary HPI Summary: The patient is a 78 y/o M presenting to [facility] accompanied by with a chief complaint of a head injury occurring a few hours ago. He states he tripped over his cat, causing him to fall into the wall. There is a small abrasion over the left eyebrow, and he isn't sure if there was LOC, but he remembers falling. He additionally c/o neck pain and a headache with movement of head. Per , she saw the pt get up into a chair after he fell, but he "was sitting in an unusual way." He is not currently in any pain. UTD on tetanus. He takes aspirin. - History Of Current Complaint Chief Complaint: EDHeadInjury Stated Complaint: FALL/HEAD INJURY Time Seen by Provider: 06/28/18 17:55 Hx Obtained From: Patient Mechanism Of Injury: Fall From A Standing Position - tripped over cat Onset/Duration: Started Hours Ago, Resolved Onset of Pain: Immediate Severity Currently: None Severity Initially: Moderate Pain Intensity: 0 Pain Scale Used: 0-10 Numeric Location of Head Injury: Diffuse, Other: - abrasion over left eyebrow Character: Aching Aggravating Factor(s): Movement - of head Alleviating Factor(s): Rest Associated Signs And Symptoms: Neck Pain, Headache - with movement of head, Other: - NEGATIVE: LOC - Allergies/Home Medications Allergies/Adverse Reactions: Allergies Allergy/AdvReac Type Severity Reaction Status Date / Time seasonal Allergy Eyes Uncoded 05/21/18 08:41 Itchy/Swollen/Red/Watery Home Medications: Home Medications Donepezil TAB* [Aricept 5 MG TAB*] 5 mg PO DAILY 06/28/18 [History Confirmed ] Rosuvastatin Calcium 10 mg PO DAILY 06/28/18 [History Confirmed 06/28/18] Sertraline* [Zoloft*] 100 mg PO DAILY 06/28/18 [History Confirmed 06/28/18] PMH/Surg Hx/FS Hx/Imm Hx Endocrine/Hematology History: Denies: Hx Diabetes Cardiovascular History: Reports: Hx Hypertension - ON MEDICATION FOR, Other Cardiovascular Problems/Disorders - HISTORY OF VENTRICULAR TACHYCARDIA-SEE. DR. PEDRAZA FOR Denies: Hx Pacemaker/ICD Respiratory History: Reports: Hx Seasonal Allergies, Hx Sleep Apnea Denies: Other Respiratory Problems/Disorders GI History: Denies: Hx Gastroesophageal Reflux Disease, Other GI Disorders History: Denies: Hx Renal Disease Musculoskeletal History: Reports: Hx Arthritis, Other Musculoskeletal History - spinal stenosis, resolved with L4/L5 decompression Sensory History: Reports: Hx Cataracts, Hx Contacts or Glasses - GLASSES, Hx Hearing Aid - BILATERAL Opthamlomology History: Reports: Hx Cataracts, Hx Contacts or Glasses - GLASSES Neurological History: Reports: Hx Migraine, Hx Transient Ischemic Attacks (TIA) Denies: Other Neuro Impairments/Disorders Psychiatric History: Reports: Hx Anxiety, Hx Depression - 15 YEARS AGO Denies: Hx Panic Disorder - Surgical History Surgery Procedure, Year, and Place: CYST REMOVAL. HEART CATHERIZATION NO STENTING X 2. L4/L5 DECOMPRESSION X 2 SURGERIES Hx Anesthesia Reactions: No Infectious Disease History: No Infectious Disease History: Denies: Traveled Outside the [place] in Last 30 Days - Family History Family History: father - valve problem. mother - glaucoma - Social History Alcohol Use: Rare Alcohol Amount: 1 Q 2 MONTHS Substance Use Type: Reports: None Smoking Status (MU): Never Smoked Tobacco Have You Smoked in the Last Year: No Review of Systems Positive: Other - neck pain Positive: Other - abrasion over left eyebrow Neurological: Other - NEGATIVE: LOC Positive: Headache - with movement of head All Other Systems Reviewed And Are Negative: Yes Physical Exam - Summary Physical Exam Summary: Appearance: Well appearing, no pain distress Skin: warm, dry, reflects adequate perfusion Head/face: small abrasion over left eyebrow Eyes: EOMI, JASVIR ENT: normal Neck: supple, non-tender Respiratory: CTA, breath sounds present Cardiovascular: RRR, pulses symmetrical Abdomen: non-tender, soft Musculoskeletal: normal, strength/ROM intact Neuro: normal, sensory motor intact, A&Ox3, GCS: 15 Triage Information Reviewed: Yes Vital Signs On Initial Exam: Initial Vitals Temp Pulse Resp BP Pulse Ox 97.8 F 103 16 122/72 94 06/28/18 16:40 06/28/18 16:40 06/28/18 16:40 06/28/18 16:40 06/28/18 16:40 Vital Signs Reviewed: Yes - Dameon Coma Scale Best Eye Response: 4 - Spontaneous Best Motor Response: 6 - Obeys Commands Best Verbal Response: 5 - Oriented Coma Scale Total: 15 Diagnostics - Vital Signs Vital Signs Temp Pulse Resp BP Pulse Ox 06/28/18 21:06 105 135/83 95 06/28/18 21:05 102 92 06/28/18 19:02 97.9 F 99 16 121/74 99 06/28/18 16:40 97.8 F 103 16 122/72 94 - Laboratory Lab Statement: Any lab studies that have been ordered have been reviewed, and results considered in the medical decision making process. - CT Brain CT CT Interpretation Completed By: Radiologist Summary of CT Findings: 1. No acute intracranial pathology. 2. Other chronic findings, as above. Brain: Nonspecific hypodensities of the periventricular and deep subcortical white matter, most likely secondary to chronic small vessel ischemic change. No intracranial hemorrhage or extra-axial fluid collection. No evidence of mass effect or midline shift. Mukherjee-white matter differentiation is normal. Ventricles: Prominence of the ventricles and sulci , most likely attributed to parenchymal volume loss. Bones/joints: No acute osseus lesion or fracture. Sinuses: Unremarkable as visualized. Mastoid air cells: Unremarkable. Soft tissues: Unremarkable. ED physician has reviewed this report. Cervical Spine CT CT Interpretation Completed By: Radiologist Summary of CT Findings: FINDINGS: Vertebrae: Vertebral body heights are maintained. No locked or perched facets. Multilevel facet arthropathy. No acute fracture. The dens is intact. Atlanto-axial intervals are normal. Discs/Spinal canal/Neural foramina: Multilevel degenerative changes with intervertebral disc height loss and osteophyte formation. No significant spinal stenosis. Soft tissues: Unremarkable. Lungs: Lung apices are clear. IMPRESSION: No acute cervical spine fracture. ED physician has reviewed this report. Head Injury Course/Dx Course Of Treatment: The patient is a 78 y/o M presenting to [facility] with a chief complaint of tripping over his cat, causing a headache with movement of head, neck pain, and an abrasion over his left eyebrow tonight. He doesn't think there was LOC associated, but his reports that he seemed to be sitting unusually in the chair s/p fall. Upon physical exam, the patient has a small abrasion over his left eyebrow. In the ED course, Brain CT reveals no acute pathology. Cervical Spine CT is also negative. Patient will be discharged home with dx and instructions for head injury. Patient agrees with this plan and understands the need for return to the ED if symptoms worsen. - Diagnoses Provider Diagnoses: Head injury Discharge - Sign-Out/Discharge Documenting (check all that apply): Patient Departure - Patient will be discharged home. - Discharge Plan Condition: Stable Disposition: HOME Patient Education Materials: Head Injury (ED) Referrals: Miguel Angel Sauceda MD [Primary Care Provider] - 3 Days Additional Instructions: Please take Tylenol for pain. Follow up with your primary care provider in 3 days. Return to the emergency department if any new or worsening symptoms occur. - Billing Disposition and Condition Condition: STABLE Disposition: Home - Attestation Statements Document Initiated by Ingrid: Yes Documenting Scribe: Nilam Feldman Provider For Whom Ingrid is Documenting (Include Credential): Dr. Harry Glez MD Scribe Attestation: Nilam Carias scribed for Dr. Harry Glez MD on 06/28/18 at 2123. Scribe Documentation Reviewed: Yes Provider Attestation: The documentation as recorded by the Nilam finch accurately reflects the service I personally performed and the decisions made by me, Dr. Harry Glez MD Status of Scribe Document: Ready
[2018-06-28 21:31] VITALS: BP 127/78
== END 2018-06-28 21:35 | disposition home or self-care (01) ==
LOC: ED 16:10
DX: S00.212A Abrasion of left eyelid and periocular area, initial encounter (principal); W18.30XA Fall on same level, unspecified, initial encounter; Y92.019 Unspecified place in single-family (private) house as the place of occurrence of the external cause; I10 Essential (primary) hypertension
CPT/HCPCS: 70450; 72125; 99282